=== PATIENT | female | born 1995 | race Caucasian/White ===

== ENCOUNTER 2016-10-18 06:46 | Emergency (ER) | payer BC, MEDICAID ==
[~2016-10-18 06:46] MED LIST: ACET50TA PO; IBUP-1114 PO; PREN1TAB11 PO
[2016-10-18] MEDS ORDERED: ONDANSETRON 4MG/2ML VIAL (J2405) As Ordered ONE (07:35)
[2016-10-18 07:52] LABS: BASO % 0.2 % (0.0-1.0); EOS # 0.1 K/mm3 (0.0-0.50); EOS % 0.8 % (0.0-3.0); LARGE UNSTAINED CELL # 0.1 K/mm3 (0.0-0.4); LARGE UNSTAINED CELL % 0.9 % (0.0-4.0); LYMPH # 0.4 K/mm3 (1.5-6.5); LYMPH % 4.6 % (24.0-44.0); MEAN CORPUSCULAR HEMOGLOBIN 29.2 pg (27.0-33.0); MEAN CORPUSCULAR HGB CONC 34.2 g/dl (32.0-36.5); MEAN CORPUSCULAR VOLUME 85.2 fl (80.0-96.0); MONO # 0.2 K/mm3 (0.0-0.8); MONO % 1.9 % (0.0-5.0); NEUTROPHILS # 7.1 K/mm3 (1.8-7.7); NEUTROPHILS % 91.6 % (36.0-66.0); PLATELET COUNT, AUTOMATED 236 k/mm3 (150-450); RED CELL DISTRIBUTION WIDTH 11.7 % (11.5-14.5); WHITE BLOOD COUNT 7.8 K/mm3 (4.0-10.0)
[2016-10-18 08:19] LABS: ALBUMIN/GLOBULIN RATIO 1.14 (1.00-1.93); ALKALINE PHOSPHATASE 102 U/L (45-117); ALT/SGPT 20 U/L (12-78); AMYLASE 68 U/L (25-115); ANION GAP 13 MEQ/L (8-16); AST/SGOT 11 U/L (15-37); BILIRUBIN,DIRECT 0.2 MG/DL (0.0-0.2); BILIRUBIN,TOTAL 0.7 MG/DL (0.2-1.0); BLOOD UREA NITROGEN 15 MG/DL (7-18); CALCIUM LEVEL 9.1 MG/DL (8.5-10.1); CARBON DIOXIDE LEVEL 24 MEQ/L (21-32); CHLORIDE LEVEL 106 MEQ/L (98-107); CREATININE FOR GFR 0.77 MG/DL (0.55-1.02); GLUCOSE, FASTING 128 MG/DL (70-105); POTASSIUM SERUM 3.8 MEQ/L (3.5-5.1); SODIUM LEVEL 143 MEQ/L (136-145); TOTAL PROTEIN 7.5 GM/DL (6.4-8.2)
[2016-10-18] MEDS ORDERED: ISOVUE-370 76% 100ML VIAL (Q9967) As Ordered ONE (08:33)
--- NOTE | 2016-10-18 08:58 | REP ---
Clinical: Mid abdominal pain. Technique: Axial contrast enhanced images from the lung bases to the pubic symphysis using 100 ml Isovue 370 intravenous contrast material with coronal and sagittal re-formations. Findings: Lung bases are clear. Visualized heart and pericardium are normal. Liver, spleen, pancreas, gallbladder, bilateral adrenal glands and kidneys are normal. The enteric system demonstrates fluid-filled small bowel along with moderate fecal stasis involving the transverse through rectosigmoid colon suggesting the possibility of constipation as well as mild enteritis. No bowel obstruction. Normal appendix identified in the right lower quadrant. Pelvis demonstrates normal bladder and age-appropriate uterus/adnexa. No pelvic fluid or ascites. No free air. No intraperitoneal or retroperitoneal adenopathy. Musculoskeletal structures are intact and normal. Impression: 1. Moderate fecal stasis and possible constipation as well as mild enteritis cannot be excluded. 2. Normal appendix identified in the right lower quadrant. 3. No free fluid. Signed by Gopal Welch MD 10/18/2016 08:49 A
[2016-10-18] MEDS ORDERED: MAGNESIUM CITRATE 300 ML BTL As Ordered ONE (09:20)
--- NOTE | 2016-10-18 09:33 | EDDOCDS ---
Nurse's Notes [facility] Name: Cheyenne Pete Age: 20 yrs Sex: Female : 1995 Arrival Date: 10/18/2016 Time: 06:46 Bed I3 / M3 Private MD: Diagnosis: Constipation;Nausea and vomiting Presentation: 10/18 07:09 Presenting complaint: Patient states: "I woke up at 1100 last night and I've been jc4 vomiting since." Complains of pain in mid-abdomen. Denies any diarrhea. Risk factors: the patient reports no vaginal bleeding. Suicide/Homicide risk assessment- the patient denies having any suicidal and/or homicidal ideations and does not present with any other emotional, behavioral or mental health complaints. 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 Transition of care: patient was not received from another setting of care. 07:09 Acuity: MARCOS Level 3 4 07:09 Method Of Arrival: Walkin/Carried/Asstd jc4 07:14 Adult Sepsis Screening: The patient does not have new or worsening altered mentation. jc4 Patient's respiratory rate is less than 22. Systolic blood pressure is greater than 100. Patient has a qSOFA score of 0- Negative Sepsis Screen. Triage Assessment: 07:11 General: Appears uncomfortable. Pain: Pain currently is 8 out of 10 on a pain scale. Pt jc4 Declines HIV testing. GI: Reports nausea, vomiting. 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 BCP 1 tab once daily (Last dose: 10/17/2016) - PMHx: none; - PSHx: [place] Teeth Extraction; - Social history: Smoking status: Patient states was never smoker of tobacco. No barriers to communication noted, The patient speaks fluent [place] Of [place]. - Family history: Father has/had recently diagnosed with C-diff. - : The pt / caregiver states he / she is not on anticoagulants. Home medication list is obtained from the patient. - Exposure Risk Screening:: None identified. Screenin:47 Screening information is obtained from the patient. Fall risk: No risks identified. dls Assistance ADL's: requires no assistance with activities of daily living. Abuse/DV Screen: The patient / caregiver reports he/she is: not in a situation that causes fear, pain or injury. Nutritional screening: No deficits noted. Advance Directives: Currently, there is no health care proxy. There is no active DNR order. There is no living will. There is no Power of Oncology Registrar. Advance directive information has not previously been placed in an [facility] medical record. home support is adequate. Assessment: 07:46 General: Appears in no apparent distress, well developed, well nourished, well groomed, dls Behavior is cooperative. Pain: Location: abdomen. Neurological: No deficits noted. EENT: No deficits noted. Cardiovascular: No deficits noted. Respiratory: No deficits noted. GI: Abdomen is non- distended Bowel sounds diminished in right upper quadrant, left upper quadrant, right lower quadrant and left lower quadrant Abd is tender to palpation in right upper quadrant and right lower quadrant Reports nausea, vomiting. : No deficits noted. Derm: No deficits noted. Musculoskeletal: No deficits noted. 08:52 General: Pt states nausea has improved after medication pt to CT and returned via w/c dls IV site remains patent and clear.. 09:30 General: Appears in no apparent distress, very casual presentation. ambulates with jmk brisk upright gait. Vital Signs: 07:11 BP 123 / 69; Pulse 115; Resp 20; Temp 99.5(O); Pulse Ox 97% on R/A; Weight 79.83 kg; jc4 Height 5 ft. 10 in. (177.80 cm); Pain 8/10; 09:22 BP 108 / 55; Pulse 109; Resp 18; Temp 98.0(O); Pulse Ox 100% on R/A; Pain 6/10; dem1 07:11 Body Mass Index 25.25 (79.83 kg, 177.80 cm) [facility] Vitals: 07:11 Log In Time: October 18, 2016 at 06:42. [facility] ED Course: 06:47 Patient visited by Avani Dooley. [facility] [place] 06:47 Patient moved to Waiting [facility] [place] 07:10 Triage Initiated [facility] 07:11 Quique Huizar PA is PHCP. btw 07:11 Venancio Ortega MD is Attending Physician. btw 07:11 Claudia Spencer, MARIA ELENA is Primary Nurse. btw 07:11 Patient moved to I2 / M2 btw 07:15 Patient moved to I3 / M3 dls 07:23 Patient visited by Quique Huizar PA. btw 07:41 Urinalysis Sent. dem1 07:41 Urine Culture Sent. dem1 07:42 Patient visited by Selene Vaughn. dem1 07:44 Amylase Sent. dls 07:44 Basic Metabolic Profile Sent. dls 07:44 CBC with Diff Sent. dls 07:44 Lipase Sent. dls 07:44 Liver Profile Sent. dls 07:47 The patient / caregiver is instructed regarding the plan of care and ED course. dls Accompanied by Friend, Patient has correct armband on for positive identification. Bed in low position. Call light in reach. 07:47 Inserted saline lock: 20 gauge in left forearm and blood collected. The patient dls tolerated the procedure well. 08:09 [facility] Payment Agreement was scanned into [employer] and attached to record. lg 08:54 Patient visited by Claudia Spencer RN. dls 09:01 CT ABD & PELVIS: IV Contrast Only Returned. EDMS 09:17 [facility] is Referral Physician. btw 09:22 Patient visited by Selene Vaughn. dem1 09:30 Discontinued lock intact, bleeding controlled, pressure dressing applied, No jmk redness/swelling at site. No procedures done that require assistance. Administered Medications: 07:45 Drug: Ondansetron 4 mg [ondansetron HCl 2 mg/mL intravenous solution (2 mL)] Route: dls IVP; Site: left wrist; 09:23 Drug: Magnesium Citrate 300 ml [magnesium citrate oral solution (300 mL)] Route: PO; [facility] Point of Care Testing: Urine : 07:41 hCG Reading: Negative; Control Reading: Positive; dem1 Ranges: Order Results: Lab Order: Amylase; SPEC'M 10/18/16 07:44 Test: AMYLASE; Value: 68; Range: 25-115; Units: U/L; Status: F Lab Order: Basic Metabolic Profile; SPEC'M 10/18/16 07:44 Test: GLUCOSE, FASTING; Value: 128; Range: 70-105; Abnormal: Above high normal; Units: MG/DL; Status: F Test: BLOOD UREA NITROGEN; Value: 15; Range: 7-18; Units: MG/DL; Status: F Test: CREATININE FOR GFR; Value: 0.77; Range: 0.55-1.02; Units: MG/DL; Status: F Test: SODIUM LEVEL; Value: 143; Range: 136-145; Units: MEQ/L; Status: F Test: POTASSIUM SERUM; Value: 3.8; Range: 3.5-5.1; Units: MEQ/L; Status: F Test: CHLORIDE LEVEL; Value: 106; Range: 98-107; Units: MEQ/L; Status: F Test: CARBON DIOXIDE LEVEL; Value: 24; Range: 21-32; Units: MEQ/L; Status: F Test: ANION GAP; Value: 13; Range: 8-16; Units: MEQ/L; Status: F Test: CALCIUM LEVEL; Value: 9.1; Range: 8.5-10.1; Units: MG/DL; Status: F Lab Order: CBC with Diff; SPEC'M 10/18/16 07:44 Test: WHITE BLOOD COUNT; Value: 7.8; Range: 4.0-10.0; Units: K/mm3; Status: F Test: RED BLOOD COUNT; Value: 5.02; Range: 4.00-5.40; Units: M/mm3; Status: F Test: HEMOGLOBIN; Value: 14.7; Range: 12.0-16.0; Units: g/dl; Status: F Test: HEMATOCRIT; Value: 42.8; Range: 36.0-47.0; Units: %; Status: F Test: MEAN CORPUSCULAR VOLUME; Value: 85.2; Range: 80.0-96.0; Units: fl; Status: F Test: MEAN CORPUSCULAR HEMOGLOBIN; Value: 29.2; Range: 27.0-33.0; Units: pg; Status: F Test: MEAN CORPUSCULAR HGB CONC; Value: 34.2; Range: 32.0-36.5; Units: g/dl; Status: F Test: RED CELL DISTRIBUTION WIDTH; Value: 11.7; Range: 11.5-14.5; Units: %; Status: F Test: PLATELET COUNT, AUTOMATED; Value: 236; Range: 150-450; Units: k/mm3; Status: F Test: NEUTROPHILS %; Value: 91.6; Range: 36.0-66.0; Abnormal: Above high normal; Units: %; Status: F Test: LYMPH %; Value: 4.6; Range: 24.0-44.0; Abnormal: Below low normal; Units: %; Status: F Test: MONO %; Value: 1.9; Range: 0.0-5.0; Units: %; Status: F Test: EOS %; Value: 0.8; Range: 0.0-3.0; Units: %; Status: F Test: BASO %; Value: 0.2; Range: 0.0-1.0; Units: %; Status: F Test: LARGE UNSTAINED CELL %; Value: 0.9; Range: 0.0-4.0; Units: %; Status: F Test: NEUTROPHILS #; Value: 7.1; Range: 1.8-7.7; Units: K/mm3; Status: F Test: LYMPH #; Value: 0.4; Range: 1.5-6.5; Abnormal: Below low normal; Units: K/mm3; Status: F Test: MONO #; Value: 0.2; Range: 0.0-0.8; Units: K/mm3; Status: F Test: EOS #; Value: 0.1; Range: 0.0-0.50; Units: K/mm3; Status: F Test: BASO #; Value: 0.0; Range: 0.0-0.2; Units: K/mm3; Status: F Test: LARGE UNSTAINED CELL #; Value: 0.1; Range: 0.0-0.4; Units: K/mm3; Status: F Lab Order: Lipase; SPEC'M 10/18/16 07:44 Test: LIPASE; Value: 118; Range: 73-393; Units: U/L; Status: F Lab Order: Liver Profile; SPEC'M 10/18/16 07:44 Test: AST/SGOT; Value: 11; Range: 15-37; Abnormal: Below low normal; Units: U/L; Status: F Test: ALT/SGPT; Value: 20; Range: 12-78; Units: U/L; Status: F Test: ALKALINE PHOSPHATASE; Value: 102; Range: 45-117; Units: U/L; Status: F Test: BILIRUBIN,TOTAL; Value: 0.7; Range: 0.2-1.0; Units: MG/DL; Status: F Test: BILIRUBIN,DIRECT; Value: 0.2; Range: 0.0-0.2; Units: MG/DL; Status: F Test: TOTAL PROTEIN; Value: 7.5; Range: 6.4-8.2; Units: GM/DL; Status: F Test: ALBUMIN; Value: 4.0; Range: 3.2-5.2; Units: GM/DL; Status: F Test: ALBUMIN/GLOBULIN RATIO; Value: 1.14; Range: 1.00-1.93; Status: F Lab Order: Urinalysis; SPEC'M 10/18/16 07:39 Test: APPEARANCE, URINE; Value: CLOUDY; Range: CLEAR; Abnormal: Above high normal; Status: F Test: COLOR, URINE; Value: YELLOW; Range: YELLOW; Status: F Test: PH,URINE; Value: 7.0; Range: 5.0-9.0; Units: UNITS; Status: F Test: SPECIFIC GRAVITY URINE AUTO; Value: 1.027; Range: 1.002-1.035; Status: F Test: PROTEIN, URINE AUTO; Value: 1+; Range: NEGATIVE; Abnormal: Above high normal; Units: mg/dL; Status: F Test: GLUCOSE, URINE (UA) AUTO; Value: 1+; Range: NEGATIVE; Abnormal: Above high normal; Units: mg/dL; Status: F Test: KETONE, URINE AUTO; Value: NEGATIVE; Range: NEGATIVE; Units: mg/dL; Status: F Test: UROBILINOGEN, URINE AUTO; Value: 0.2; Range: 0.0-2.0; Units: mg/dL; Status: F Test: BILIRUBIN, URINE AUTO; Value: NEGATIVE; Range: NEGATIVE; Status: F Test: NITRITE, URINE AUTO; Value: NEGATIVE; Range: NEGATIVE; Status: F Test: LEUKOCYTE ESTERASE, URINE AUTO; Value: 2+; Range: NEGATIVE; Abnormal: Above high normal; Status: F Test: BLOOD, URINE BLOOD; Value: NEGATIVE; Range: NEGATIVE; Status: F Test: WBC, URINE AUTO; Value: 12; Range: 0-3; Abnormal: Above high normal; Units: /HPF; Status: F Test: RBC, URINE AUTO; Value: 1; Range: 0-3; Units: /HPF; Status: F Test: BACTERIA, URINE AUTO; Value: 2+; Range: NEGATIVE; Abnormal: Above high normal; Status: F Test: SQUAMOUS EPITHELIAL CELL UR AU; Value: 33; Range: 0-6; Units: /HPF; Status: F Test: MUCUS, URINE; Value: SMALL; Range: NEGATIVE; Status: F Test: HYALINE CAST, URINE AUTO; Value: 0; Range: 0-1; Units: /LPF; Status: F Radiology Order: CT ABD & PELVIS: IV Contrast Only Test: CT ABD & PELVIS: IV Contrast Only REASON FOR EXAMINATION: Appendicitis; Clinical: Mid abdominal pain.; ; Technique: Axial contrast enhanced images from the lung bases to the pubic; symphysis using 100 ml Isovue 370 intravenous contrast material with coronal and; sagittal re-formations.; ; Findings:; Lung bases are clear. Visualized heart and pericardium are normal.; ; Liver, spleen, pancreas, gallbladder, bilateral adrenal glands and kidneys are; normal. The enteric system demonstrates fluid-filled small bowel along with; moderate fecal stasis involving the transverse through rectosigmoid colon; suggesting the possibility of constipation as well as mild enteritis. No bowel; obstruction. Normal appendix identified in the right lower quadrant. Pelvis; demonstrates normal bladder and age-appropriate uterus/adnexa. No pelvic fluid; or ascites. No free air. No intraperitoneal or retroperitoneal adenopathy.; Musculoskeletal structures are intact and normal.; ; Impression:; 1. Moderate fecal stasis and possible constipation as well as mild enteritis; cannot be excluded.; 2. Normal appendix identified in the right lower quadrant.; 3. No free fluid.; ; ; Signed by; Gopal Welch MD 10/18/2016 08:49 A; Outcome: 09:17 Discharge ordered by Provider. btw 09:30 Discharge Assessment: Patient awake, alert and oriented x 3. No cognitive and/or k functional deficits noted. Patient verbalized understanding of disposition instructions. patient administered narcotics - no. The following High Risk Discharge criteria are identified: None. Discharged to home ambulatory. Condition: good. Discharge instructions given to patient, Instructed on discharge instructions, follow up and referral plans. medication usage, Demonstrated understanding of instructions, medications, Pt was receptive of discharge instructions/ teaching. No special radiology studies were completed. Property :Personal belongings accompany Pt. 09:31 Patient left the ED. [facility] Signatures: Dispatcher [employer] Mingo Delong RN RN Claudia Eden RN RN Lalo Quinteros, Brandon Reg Quique Arciniega PA PA btw Castle, Jennifer, RN RN jc4 Selene Vaughn Gabriela gjb WALTD
--- NOTE | 2016-10-18 09:33 | EDDOCDS ---
Physician Documentation [facility] Name: Cheyenne Pete Age: 20 yrs Sex: Female : 1995 Arrival Date: 10/18/2016 Time: 06:46 Bed I3 / M3 Private MD: Disposition: 10/18/16 09:17 Discharged to Home/Self Care. Impression: Constipation, Nausea and vomiting. - Condition is Stable. - Discharge Instructions: High-Fiber Diet, Nausea and Vomiting, Constipation, Adult, [id number]. - Medication Reconciliation, Local Pharmacy Hours form. - [facility] up: [facility]; When: Call to arrange an appointment; Reason: Further diagnostic work-up, Recheck today's complaints, Continuance of care. - Problem is new. - Symptoms have improved. Historical: - Allergies: Augmentin (chest pain); - Home Meds: 1. BCP 1 tab once daily (Last dose: 10/17/2016) - PMHx: none; - PSHx: [place] Teeth Extraction; - Social history: Smoking status: Patient states was never smoker of tobacco. No barriers to communication noted, The patient speaks fluent Taiwanese. - Family history: Father has/had recently diagnosed with C-diff. - : The pt / caregiver states he / she is not on anticoagulants. Home medication list is obtained from the patient. - Exposure Risk Screening:: None identified. 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 10 in. (177.80 cm); Pain 8/10; 09:22 BP 108 / 55; Pulse 109; Resp 18; Temp 98.0(O); Pulse Ox 100% on R/A; Pain 6/10; dem1 07:11 Body Mass Index 25.25 (79.83 kg, 177.80 cm) 4 MDM: 07:30 Ondansetron 4 mg IVP once ordered. btw 07:30 IV Saline Lock ordered. btw 07:30 Amylase Ordered. EDMS 07:30 Basic Metabolic Profile Ordered. EDMS 07:30 CBC with Diff Ordered. EDMS 07:31 Lipase Ordered. EDMS 07:31 Liver Profile Ordered. EDMS 07:31 Urinalysis Ordered. EDMS 07:31 Urine Culture Ordered. EDMS 07:31 CT ABD & PELVIS: IV Contrast Only Ordered. EDMS 07:31 NOTHING BY MOUTH+DIET ordered. EDMS 07:37 UCG by Nursing ordered. btw 07:46 Financial registration complete. lg 08:09 [facility] Payment Agreement was scanned into [employer] and attached to record. lg 08:33 Basic Metabolic Profile Reviewed. btw 08:33 CBC with Diff Reviewed. btw 08:33 Liver Profile Reviewed. btw 08:33 Urinalysis Reviewed. btw 08:33 Amylase Reviewed. btw 08:33 Lipase Reviewed. btw 09:16 Magnesium Citrate Liquid 300 ml PO once; Dispense home with pt. ordered. btw Point of Care Testing: Urine : 07:41 hCG Reading: Negative; Control Reading: Positive; dem1 Ranges: Administered Medications: 07:45 Drug: Ondansetron 4 mg [ondansetron HCl 2 mg/mL intravenous solution (2 mL)] Route: dls IVP; Site: left wrist; 09:23 Drug: Magnesium Citrate 300 ml [magnesium citrate oral solution (300 mL)] Route: PO; derick Signatures: Dispatcher [employer] EDMS Mingo Urbina,RN RN Lalo Graves, Brandon Reg lg Quiuqe Huizar PA PA btw Grace Tapia RN RN Claudia Arnold RN The chart was reviewed and I authenticate all verbal orders and agree with the evaluation and treatment provided.Attachments: 08:09 [facility] Payment Agreement lg MTDD
--- NOTE | 2016-10-20 10:32 | EDDOCDS ---
Physician Documentation [facility] Name: Cheyenne Pete Age: 20 yrs Sex: Female : 1995 Arrival Date: 10/18/2016 Time: 06:46 Bed I3 / M3 Private MD: Disposition: 10/18/16 09:17 Discharged to Home/Self Care. Impression: Constipation, Nausea and vomiting. - Condition is Stable. - Discharge Instructions: High-Fiber Diet, Nausea and Vomiting, Constipation, Adult, Ieln-if-Suam. - Medication Reconciliation, Local Pharmacy Hours form. - Follow up: [facility]; When: Call to arrange an appointment; Reason: Further diagnostic work-up, Recheck today's complaints, Continuance of care. - Problem is new. - Symptoms have improved. Historical: - Allergies: Augmentin (chest pain); - Home Meds: 1. BCP 1 tab once daily (Last dose: 10/17/2016) - PMHx: none; - PSHx: [place] Teeth Extraction; - Social history: Smoking status: Patient states was never smoker of tobacco. No barriers to communication noted, The patient speaks fluent [place]inamese. - Family history: Father has/had recently diagnosed with C-diff. - : The pt / caregiver states he / she is not on anticoagulants. Home medication list is obtained from the patient. - Exposure Risk Screening:: None identified. 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 10 in. (177.80 cm); Pain 8/10; 09:22 BP 108 / 55; Pulse 109; Resp 18; Temp 98.0(O); Pulse Ox 100% on R/A; Pain 6/10; dem1 07:11 Body Mass Index 25.25 (79.83 kg, 177.80 cm) 4 MDM: 07:30 Ondansetron 4 mg IVP once ordered. btw 07:30 IV Saline Lock ordered. btw 07:30 Amylase Ordered. EDMS 07:30 Basic Metabolic Profile Ordered. EDMS 07:30 CBC with Diff Ordered. EDMS 07:31 Lipase Ordered. EDMS 07:31 Liver Profile Ordered. EDMS 07:31 Urinalysis Ordered. EDMS 07:31 Urine Culture Ordered. EDMS 07:31 CT ABD & PELVIS: IV Contrast Only Ordered. EDMS 07:31 NOTHING BY MOUTH+DIET ordered. EDMS 07:37 UCG by Nursing ordered. btw 07:46 Financial registration complete. lg 08:09 [facility] Payment Agreement was scanned into [employer] and attached to record. lg 08:33 Basic Metabolic Profile Reviewed. btw 08:33 CBC with Diff Reviewed. btw 08:33 Liver Profile Reviewed. btw 08:33 Urinalysis Reviewed. btw 08:33 Amylase Reviewed. btw 08:33 Lipase Reviewed. btw 09:16 Magnesium Citrate Liquid 300 ml PO once; Dispense home with pt. ordered. btw 13:25 T-Sheet-- Draft Copy was scanned into [employer] and attached to record. gb Point of Care Testing: Urine : 07:41 hCG Reading: Negative; Control Reading: Positive; dem1 Ranges: Administered Medications: 07:45 Drug: Ondansetron 4 mg [ondansetron HCl 2 mg/mL intravenous solution (2 mL)] Route: dls IVP; Site: left wrist; 09:23 Drug: Magnesium Citrate 300 ml [magnesium citrate oral solution (300 mL)] Route: PO; derick Signatures: Dispatcher [employer] Mingo Delong,RN RN Xi Steiner, Reg Reg gb Lalo Perales, Reg Reg lg Quique Huizar PA PA btw Grace Tapia RN RN Claudia Arnold RN The chart was reviewed and I authenticate all verbal orders and agree with the evaluation and treatment provided.Attachments: 08:09 [facility] Payment Agreement lg 13:25 T-Sheet-- Draft Copy gb Chart Complete MTDD
--- NOTE | 2016-10-20 10:32 | EDDOCDS ---
Physician Documentation [facility] Name: Cheyenne Pete Age: 20 yrs Sex: Female : 1995 Arrival Date: 10/18/2016 Time: 06:46 Bed I3 / M3 Private MD: Disposition: 10/18/16 09:17 Discharged to Home/Self Care. Impression: Constipation, Nausea and vomiting. - Condition is Stable. - Discharge Instructions: High-Fiber Diet, Nausea and Vomiting, Constipation, Adult, [id number]. - Medication Reconciliation, Local Pharmacy Hours form. - Follow up: [facility]; When: Call to arrange an appointment; Reason: Further diagnostic work-up, Recheck today's complaints, Continuance of care. - Problem is new. - Symptoms have improved. Historical: - Allergies: Augmentin (chest pain); - Home Meds: 1. BCP 1 tab once daily (Last dose: 10/17/2016) - PMHx: none; - PSHx: [place] Teeth Extraction; - Social history: Smoking status: Patient states was never smoker of tobacco. No barriers to communication noted, The patient speaks fluent [place] Konger. - Family history: Father has/had recently diagnosed with C-diff. - : The pt / caregiver states he / she is not on anticoagulants. Home medication list is obtained from the patient. - Exposure Risk Screening:: None identified. 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 10 in. (177.80 cm); Pain 8/10; 09:22 BP 108 / 55; Pulse 109; Resp 18; Temp 98.0(O); Pulse Ox 100% on R/A; Pain 6/10; dem1 07:11 Body Mass Index 25.25 (79.83 kg, 177.80 cm) 4 MDM: 07:30 Ondansetron 4 mg IVP once ordered. btw 07:30 IV Saline Lock ordered. btw 07:30 Amylase Ordered. EDMS 07:30 Basic Metabolic Profile Ordered. EDMS 07:30 CBC with Diff Ordered. EDMS 07:31 Lipase Ordered. EDMS 07:31 Liver Profile Ordered. EDMS 07:31 Urinalysis Ordered. EDMS 07:31 Urine Culture Ordered. EDMS 07:31 CT ABD & PELVIS: IV Contrast Only Ordered. EDMS 07:31 NOTHING BY MOUTH+DIET ordered. EDMS 07:37 UCG by Nursing ordered. btw 07:46 Financial registration complete. lg 08:09 [facility] Payment Agreement was scanned into [employer] and attached to record. lg 08:33 Basic Metabolic Profile Reviewed. btw 08:33 CBC with Diff Reviewed. btw 08:33 Liver Profile Reviewed. btw 08:33 Urinalysis Reviewed. btw 08:33 Amylase Reviewed. btw 08:33 Lipase Reviewed. btw 09:16 Magnesium Citrate Liquid 300 ml PO once; Dispense home with pt. ordered. btw 13:25 T-Sheet-- Draft Copy was scanned into [employer] and attached to record. gb Point of Care Testing: Urine : 07:41 hCG Reading: Negative; Control Reading: Positive; dem1 Ranges: Administered Medications: 07:45 Drug: Ondansetron 4 mg [ondansetron HCl 2 mg/mL intravenous solution (2 mL)] Route: dls IVP; Site: left wrist; 09:23 Drug: Magnesium Citrate 300 ml [magnesium citrate oral solution (300 mL)] Route: PO; derick Signatures: Dispatcher [employer] Mingo Delong,RN RN Xi Steiner, Reg Reg gb aLlo Perales, Reg Reg lg Quique Huizar PA PA btw Grace Tapia RN RN Claudia Arnold RN The chart was reviewed and I authenticate all verbal orders and agree with the evaluation and treatment provided.Attachments: 08:09 [facility] Payment Agreement lg 13:25 T-Sheet-- Draft Copy gb Chart Complete MTDD
--- NOTE | 2016-10-20 10:32 | EDDOCDS ---
Nurse's Notes [facility] Name: Cheyenne Pete Age: 20 yrs Sex: Female : 1995 Arrival Date: 10/18/2016 Time: 06:46 Bed I3 / M3 Private MD: Diagnosis: Constipation;Nausea and vomiting Presentation: 10/18 07:09 Presenting complaint: Patient states: "I woke up at 1100 last night and I've been jc4 vomiting since." Complains of pain in mid-abdomen. Denies any diarrhea. Risk factors: the patient reports no vaginal bleeding. Suicide/Homicide risk assessment- the patient denies having any suicidal and/or homicidal ideations and does not present with any other emotional, behavioral or mental health complaints. Status: Patient is not a insurance customer service specialist or dependent. Transition of care: patient was not received from another setting of care. 07:09 Acuity: MARCOS Level 3 4 07:09 Method Of Arrival: Walkin/Carried/Asstd jc4 07:14 Adult Sepsis Screening: The patient does not have new or worsening altered mentation. jc4 Patient's respiratory rate is less than 22. Systolic blood pressure is greater than 100. Patient has a qSOFA score of 0- Negative Sepsis Screen. Triage Assessment: 07:11 General: Appears uncomfortable. Pain: Pain currently is 8 out of 10 on a pain scale. Pt jc4 Declines HIV testing. GI: Reports nausea, vomiting. NURSING HOME ASSISTANT: 07:11 LMP 10/10/2016 jc4 Historical: - Allergies: Augmentin (chest pain); - Home Meds: 1. BCP 1 tab once daily (Last dose: 10/17/2016) - PMHx: none; - PSHx: Fleischmanns Teeth Extraction; - Social history: Smoking status: Patient states was never smoker of tobacco. No barriers to communication noted, The patient speaks fluent Libyan. - Family history: Father has/had recently diagnosed with C-diff. - : The pt / caregiver states he / she is not on anticoagulants. Home medication list is obtained from the patient. - Exposure Risk Screening:: None identified. Screenin:47 Screening information is obtained from the patient. Fall risk: No risks identified. dls Assistance ADL's: requires no assistance with activities of daily living. Abuse/DV Screen: The patient / caregiver reports he/she is: not in a situation that causes fear, pain or injury. Nutritional screening: No deficits noted. Advance Directives: Currently, there is no health care proxy. There is no active DNR order. There is no living will. There is no Power of Sql Data Analyst. Advance directive information has not previously been placed in an [facility] medical record. home support is adequate. Assessment: 07:46 General: Appears in no apparent distress, well developed, well nourished, well groomed, dls Behavior is cooperative. Pain: Location: abdomen. Neurological: No deficits noted. EENT: No deficits noted. Cardiovascular: No deficits noted. Respiratory: No deficits noted. GI: Abdomen is non- distended Bowel sounds diminished in right upper quadrant, left upper quadrant, right lower quadrant and left lower quadrant Abd is tender to palpation in right upper quadrant and right lower quadrant Reports nausea, vomiting. : No deficits noted. Derm: No deficits noted. Musculoskeletal: No deficits noted. 08:52 General: Pt states nausea has improved after medication pt to CT and returned via w/c dls IV site remains patent and clear.. 09:30 General: Appears in no apparent distress, very casual presentation. ambulates with jmk brisk upright gait. Vital Signs: 07:11 BP 123 / 69; Pulse 115; Resp 20; Temp 99.5(O); Pulse Ox 97% on R/A; Weight 79.83 kg; jc4 Height 5 ft. 10 in. (177.80 cm); Pain 8/10; 09:22 BP 108 / 55; Pulse 109; Resp 18; Temp 98.0(O); Pulse Ox 100% on R/A; Pain 6/10; dem1 07:11 Body Mass Index 25.25 (79.83 kg, 177.80 cm) [facility] Vitals: 07:11 Log In Time: October 18, 2016 at 06:42. [facility] ED Course: 06:47 Patient visited by Avani Dooley. banner 06:47 Patient moved to Waiting banner 07:10 Triage Initiated [facility] 07:11 Quique Huizar PA is PHCP. btw 07:11 Venancio Ortega MD is Attending Physician. btw 07:11 Claudia Spencer, MARIA ELENA is Primary Nurse. btw 07:11 Patient moved to I2 / M2 btw 07:15 Patient moved to I3 / M3 dls 07:23 Patient visited by Quique Huizar PA. btw 07:41 Urinalysis Sent. dem1 07:41 Urine Culture Sent. dem1 07:42 Patient visited by Selene Vaughn. dem1 07:44 Amylase Sent. dls 07:44 Basic Metabolic Profile Sent. dls 07:44 CBC with Diff Sent. dls 07:44 Lipase Sent. dls 07:44 Liver Profile Sent. dls 07:47 The patient / caregiver is instructed regarding the plan of care and ED course. dls Accompanied by Friend, Patient has correct armband on for positive identification. Bed in low position. Call light in reach. 07:47 Inserted saline lock: 20 gauge in left forearm and blood collected. The patient dls tolerated the procedure well. 08:09 [facility] [place] Payment Agreement was scanned into Jiglu and attached to record. lg 08:54 Patient visited by Claudia Spencer RN. dls 09:01 CT ABD & PELVIS: IV Contrast Only Returned. EDMS 09:17 [facility] is Referral Physician. btw 09:22 Patient visited by Selene Vaughn. dem1 09:30 Discontinued lock intact, bleeding controlled, pressure dressing applied, No jmk redness/swelling at site. No procedures done that require assistance. 13:25 T-Sheet-- Draft Copy was scanned into Jiglu and attached to record. gb Administered Medications: 07:45 Drug: Ondansetron 4 mg [ondansetron HCl 2 mg/mL intravenous solution (2 mL)] Route: dls IVP; Site: left wrist; 09:23 Drug: Magnesium Citrate 300 ml [magnesium citrate oral solution (300 mL)] Route: PO; [facility] Point of Care Testing: Urine : 07:41 hCG Reading: Negative; Control Reading: Positive; dem1 Ranges: Order Results: Lab Order: Amylase; SPEC'M 10/18/16 07:44 Test: AMYLASE; Value: 68; Range: 25-115; Units: U/L; Status: F Lab Order: Basic Metabolic Profile; SPEC'M 10/18/16 07:44 Test: GLUCOSE, FASTING; Value: 128; Range: 70-105; Abnormal: Above high normal; Units: MG/DL; Status: F Test: BLOOD UREA NITROGEN; Value: 15; Range: 7-18; Units: MG/DL; Status: F Test: CREATININE FOR GFR; Value: 0.77; Range: 0.55-1.02; Units: MG/DL; Status: F Test: SODIUM LEVEL; Value: 143; Range: 136-145; Units: MEQ/L; Status: F Test: POTASSIUM SERUM; Value: 3.8; Range: 3.5-5.1; Units: MEQ/L; Status: F Test: CHLORIDE LEVEL; Value: 106; Range: 98-107; Units: MEQ/L; Status: F Test: CARBON DIOXIDE LEVEL; Value: 24; Range: 21-32; Units: MEQ/L; Status: F Test: ANION GAP; Value: 13; Range: 8-16; Units: MEQ/L; Status: F Test: CALCIUM LEVEL; Value: 9.1; Range: 8.5-10.1; Units: MG/DL; Status: F Lab Order: CBC with Diff; SPEC'M 10/18/16 07:44 Test: WHITE BLOOD COUNT; Value: 7.8; Range: 4.0-10.0; Units: K/mm3; Status: F Test: RED BLOOD COUNT; Value: 5.02; Range: 4.00-5.40; Units: M/mm3; Status: F Test: HEMOGLOBIN; Value: 14.7; Range: 12.0-16.0; Units: g/dl; Status: F Test: HEMATOCRIT; Value: 42.8; Range: 36.0-47.0; Units: %; Status: F Test: MEAN CORPUSCULAR VOLUME; Value: 85.2; Range: 80.0-96.0; Units: fl; Status: F Test: MEAN CORPUSCULAR HEMOGLOBIN; Value: 29.2; Range: 27.0-33.0; Units: pg; Status: F Test: MEAN CORPUSCULAR HGB CONC; Value: 34.2; Range: 32.0-36.5; Units: g/dl; Status: F Test: RED CELL DISTRIBUTION WIDTH; Value: 11.7; Range: 11.5-14.5; Units: %; Status: F Test: PLATELET COUNT, AUTOMATED; Value: 236; Range: 150-450; Units: k/mm3; Status: F Test: NEUTROPHILS %; Value: 91.6; Range: 36.0-66.0; Abnormal: Above high normal; Units: %; Status: F Test: LYMPH %; Value: 4.6; Range: 24.0-44.0; Abnormal: Below low normal; Units: %; Status: F Test: MONO %; Value: 1.9; Range: 0.0-5.0; Units: %; Status: F Test: EOS %; Value: 0.8; Range: 0.0-3.0; Units: %; Status: F Test: BASO %; Value: 0.2; Range: 0.0-1.0; Units: %; Status: F Test: LARGE UNSTAINED CELL %; Value: 0.9; Range: 0.0-4.0; Units: %; Status: F Test: NEUTROPHILS #; Value: 7.1; Range: 1.8-7.7; Units: K/mm3; Status: F Test: LYMPH #; Value: 0.4; Range: 1.5-6.5; Abnormal: Below low normal; Units: K/mm3; Status: F Test: MONO #; Value: 0.2; Range: 0.0-0.8; Units: K/mm3; Status: F Test: EOS #; Value: 0.1; Range: 0.0-0.50; Units: K/mm3; Status: F Test: BASO #; Value: 0.0; Range: 0.0-0.2; Units: K/mm3; Status: F Test: LARGE UNSTAINED CELL #; Value: 0.1; Range: 0.0-0.4; Units: K/mm3; Status: F Lab Order: Lipase; SPEC'M 10/18/16 07:44 Test: LIPASE; Value: 118; Range: 73-393; Units: U/L; Status: F Lab Order: Liver Profile; SPEC'M 10/18/16 07:44 Test: AST/SGOT; Value: 11; Range: 15-37; Abnormal: Below low normal; Units: U/L; Status: F Test: ALT/SGPT; Value: 20; Range: 12-78; Units: U/L; Status: F Test: ALKALINE PHOSPHATASE; Value: 102; Range: 45-117; Units: U/L; Status: F Test: BILIRUBIN,TOTAL; Value: 0.7; Range: 0.2-1.0; Units: MG/DL; Status: F Test: BILIRUBIN,DIRECT; Value: 0.2; Range: 0.0-0.2; Units: MG/DL; Status: F Test: TOTAL PROTEIN; Value: 7.5; Range: 6.4-8.2; Units: GM/DL; Status: F Test: ALBUMIN; Value: 4.0; Range: 3.2-5.2; Units: GM/DL; Status: F Test: ALBUMIN/GLOBULIN RATIO; Value: 1.14; Range: 1.00-1.93; Status: F Lab Order: Urinalysis; SPEC'M 10/18/16 07:39 Test: APPEARANCE, URINE; Value: CLOUDY; Range: CLEAR; Abnormal: Above high normal; Status: F Test: COLOR, URINE; Value: YELLOW; Range: YELLOW; Status: F Test: PH,URINE; Value: 7.0; Range: 5.0-9.0; Units: UNITS; Status: F Test: SPECIFIC GRAVITY URINE AUTO; Value: 1.027; Range: 1.002-1.035; Status: F Test: PROTEIN, URINE AUTO; Value: 1+; Range: NEGATIVE; Abnormal: Above high normal; Units: mg/dL; Status: F Test: GLUCOSE, URINE (UA) AUTO; Value: 1+; Range: NEGATIVE; Abnormal: Above high normal; Units: mg/dL; Status: F Test: KETONE, URINE AUTO; Value: NEGATIVE; Range: NEGATIVE; Units: mg/dL; Status: F Test: UROBILINOGEN, URINE AUTO; Value: 0.2; Range: 0.0-2.0; Units: mg/dL; Status: F Test: BILIRUBIN, URINE AUTO; Value: NEGATIVE; Range: NEGATIVE; Status: F Test: NITRITE, URINE AUTO; Value: NEGATIVE; Range: NEGATIVE; Status: F Test: LEUKOCYTE ESTERASE, URINE AUTO; Value: 2+; Range: NEGATIVE; Abnormal: Above high normal; Status: F Test: BLOOD, URINE BLOOD; Value: NEGATIVE; Range: NEGATIVE; Status: F Test: WBC, URINE AUTO; Value: 12; Range: 0-3; Abnormal: Above high normal; Units: /HPF; Status: F Test: RBC, URINE AUTO; Value: 1; Range: 0-3; Units: /HPF; Status: F Test: BACTERIA, URINE AUTO; Value: 2+; Range: NEGATIVE; Abnormal: Above high normal; Status: F Test: SQUAMOUS EPITHELIAL CELL UR AU; Value: 33; Range: 0-6; Units: /HPF; Status: F Test: MUCUS, URINE; Value: SMALL; Range: NEGATIVE; Status: F Test: HYALINE CAST, URINE AUTO; Value: 0; Range: 0-1; Units: /LPF; Status: F Lab Order: Urine Culture; SPEC'M 10/18/16 07:39 Test: URINE CULTURE; Value: URINE CULTURE RESULT NO GROWTH CLINICAL SIGNIFICANCE 1 ORGANISM; Status: F Radiology Order: CT ABD & PELVIS: IV Contrast Only Test: CT ABD & PELVIS: IV Contrast Only REASON FOR EXAMINATION: Appendicitis; Clinical: Mid abdominal pain.; ; Technique: Axial contrast enhanced images from the lung bases to the pubic; symphysis using 100 ml Isovue 370 intravenous contrast material with coronal and; sagittal re-formations.; ; Findings:; Lung bases are clear. Visualized heart and pericardium are normal.; ; Liver, spleen, pancreas, gallbladder, bilateral adrenal glands and kidneys are; normal. The enteric system demonstrates fluid-filled small bowel along with; moderate fecal stasis involving the transverse through rectosigmoid colon; suggesting the possibility of constipation as well as mild enteritis. No bowel; obstruction. Normal appendix identified in the right lower quadrant. Pelvis; demonstrates normal bladder and age-appropriate uterus/adnexa. No pelvic fluid; or ascites. No free air. No intraperitoneal or retroperitoneal adenopathy.; Musculoskeletal structures are intact and normal.; ; Impression:; 1. Moderate fecal stasis and possible constipation as well as mild enteritis; cannot be excluded.; 2. Normal appendix identified in the right lower quadrant.; 3. No free fluid.; ; ; Signed by; Gopal Welch MD 10/18/2016 08:49 A; Outcome: 09:17 Discharge ordered by Provider. btw 09:30 Discharge Assessment: Patient awake, alert and oriented x 3. No cognitive and/or jmk functional deficits noted. Patient verbalized understanding of disposition instructions. patient administered narcotics - no. The following High Risk Discharge criteria are identified: None. Discharged to home ambulatory. Condition: good. Discharge instructions given to patient, Instructed on discharge instructions, follow up and referral plans. medication usage, Demonstrated understanding of instructions, medications, Pt was receptive of discharge instructions/ teaching. No special radiology studies were completed. Property :Personal belongings accompany Pt. 09:31 Patient left the ED. derick Signatures: Dispatcher [employer] EDMS Mingo Urbina,RN RN Claudia Eden RN RN dls Xi Yang, Reg Reg gb Lalo Perales, Reg Reg lg Quique Huizar PA PA btw Castle, Jennifer, RN RN jcSelene Woods Gabriela gjb Chart Complete MTDD
== END 2016-10-18 09:31 | disposition home or self-care (01) ==
LOC: M ED 06:46
DX: K59.00 Constipation, unspecified (principal); R11.2 Nausea with vomiting, unspecified; Z79.3 Long term (current) use of hormonal contraceptives; Z88.1 Allergy status to other antibiotic agents
CPT/HCPCS: 36415; 74177; 80048; 80076; 81001; 81025; 82150; 83690; 85025; 87086; 96374; 99284; J2405; Q9967

== ENCOUNTER → 2017-03-01 | Outpatient (CLI) | payer BC | LOC: M LAB 13:08 | PROVIDERS: ATTEND Nurse Practitioner Family | DX: Z32.01 Encounter for pregnancy test, result positive (principal) ==

== ENCOUNTER → 2017-03-03 | Outpatient (CLI) | payer BC | LOC: M LAB 09:52 | PROVIDERS: ATTEND Nurse Practitioner Family | DX: Z32.01 Encounter for pregnancy test, result positive (principal) ==

== ENCOUNTER 2017-03-04 11:40 | Emergency (ER) | payer BC, MEDICAID ==
[~2017-03-04] VITALS: Ht 177.8 cm; Wt 89.8 kg
[2017-03-04 13:11] LABS: BASO % 0.5 % (0.0-1.0); EOS # 0.3 K/mm3 (0.0-0.50); EOS % 3.8 % (0.0-3.0); LARGE UNSTAINED CELL # 0.2 K/mm3 (0.0-0.4); LARGE UNSTAINED CELL % 2.3 % (0.0-4.0); LYMPH # 1.9 K/mm3 (1.5-6.5); LYMPH % 22.7 % (24.0-44.0); MEAN CORPUSCULAR HEMOGLOBIN 29.9 pg (27.0-33.0); MEAN CORPUSCULAR HGB CONC 34.1 g/dl (32.0-36.5); MEAN CORPUSCULAR VOLUME 87.8 fl (80.0-96.0); MONO # 0.4 K/mm3 (0.0-0.8); MONO % 4.2 % (0.0-5.0); NEUTROPHILS # 5.7 K/mm3 (1.8-7.7); NEUTROPHILS % 66.5 % (36.0-66.0); PLATELET COUNT, AUTOMATED 304 k/mm3 (150-450); RED CELL DISTRIBUTION WIDTH 12.1 % (11.5-14.5); WHITE BLOOD COUNT 8.5 K/mm3 (4.0-10.0)
--- NOTE | 2017-03-04 14:42 | REP ---
Clinical: Pelvic pain with positive test. Technique: Transabdominal and transvaginal first trimester obstetrical ultrasound with color Doppler evaluation. Findings: Anteverted uterus with decidual reaction and a gestational sac identified. A yolk sac is appreciated without pole. Mean sac diameter of 9 mm corresponds to 5 weeks 0 days gestational age. Maternal ovaries are normal with left corpus luteal cyst noted. No significant pelvic free fluid or adnexal mass lesion. Impression: Gestational sac with yolk sac but no definable pole measuring at 5 weeks gestational age. Differential diagnosis includes early live intrauterine , blighted ovum/spontaneous , and less likely ectopic . Correlation with serial HCG levels recommended. Signed by Gopal Welch MD 03/04/2017 02:33 P
[2017-03-04 14:54] VITALS: BP 131/78
== END 2017-03-04 15:02 | disposition home or self-care (01) ==
LOC: M ED 12:56
DX: O26.891 Other specified pregnancy related conditions, first trimester (principal); R10.2 Pelvic and perineal pain; Z3A.01 Less than 8 weeks gestation of pregnancy; Z88.0 Allergy status to penicillin; Z88.8 Allergy status to other drugs, medicaments and biological substances

== ENCOUNTER → 2018-04-18 | Outpatient (REF) | payer BC, MEDICAID ==
[2018-04-18 22:17] LABS: APPEARANCE, URINE MANUAL TURBID (CLEAR); COLOR, URINE MANUAL ORANGE (YELLOW)
[2018-04-18 22:19] LABS: PH,URINE MAN 5.5 UNITS (5.0 - 7.0); SPECIFIC GRAVITY,URINE MANUAL 1.023 (1.002-1.035)
[2018-04-18 22:20] LABS: BILIRUBIN, URINE MANUAL OBSCURED (NEGATIVE); BLOOD URINE MANUAL POSITIVE (NEGATIVE); GLUCOSE, URINE (UA) MANUAL NEGATIVE (NEGATIVE); KETONE, URINE MANUAL OBSCURED mg/dL (NEGATIVE); LEUKOCYTE ESTERASE, URINE MAN POSITIVE (NEGATIVE); MICROSCOPIC INDICATED? MAN YES (NO); NITRITE, URINE MANUAL OBSCURED (NEGATIVE); PROTEIN, URINE MANUAL OBSCURED mg/dL (NEGATIVE); UROBILINOGEN, URINE MANUAL OBSCURED mg/dl (NORMAL)
[2018-04-18 22:30] LABS: MICROSCOPIC EXAM PERFORMED
[2018-04-18 22:31] LABS: RBC, URINE TNTC /hpf (0-3); WBC, URINE 40-50 /hpf (0-3)
[2018-04-18 22:32] LABS: AMORPHOUS SEDIMENT, URINE MOD AMOUNT (NEGATIVE); BACTERIA, URINE MOD AMOUNT; HYALINE CAST, URINE NONE SEEN /lpf (0-1); SQUAMOUS EPITHELIAL CELL URINE MOD AMOUNT /hpf (SMALL AMT)
== END ==
LOC: M LAB REF 09:03
DX: N39.0 Urinary tract infection, site not specified (principal)
CPT/HCPCS: 81000

== ENCOUNTER 2019-06-24 11:04 | Emergency (ER) | payer OTHER, BC, MEDICAID ==
[~2019-06-24] VITALS: Ht 177.8 cm; Wt 73.6 kg
[~2019-06-24 11:04] MED LIST changes: -ACET50TA PO; +MAPA500T2 PO; +NORE0.353
[2019-06-24] MEDS ORDERED: CYCLOBENZAPRINE 5MG TABLET PO ONE (12:00)
[2019-06-24] MEDS ORDERED: IBUPROFEN 800 MG TAB PO ONE (12:00)
[2019-06-24] MEDS ORDERED: IBUP80TA PO (13:05)
[2019-06-24] MEDS ORDERED: BACL10TA2 PO (13:05)
--- NOTE | 2019-06-24 13:16 | REP ---
Pain in the neck. Vertebral body height and alignment is within normal limits. The facet joints are well aligned bilaterally. The disc spaces are symmetric and well maintained. There is no acute fracture. There is no abnormal paraspinal soft tissue swelling. IMPRESSION: CT findings are within normal limits. Electronically Signed by Cameron Silverman DO 06/24/2019 01:17 P
[2019-06-24 13:19] VITALS: BP 120/66
--- NOTE | 2019-06-24 13:40 | REP ---
SHOULDER: REASON: Pain after trauma. COMPARISON: No priors. FINDINGS: Three views of the shoulder were performed. The acromioclavicular and glenohumeral relationships are within normal limits. There is no acute fracture or destructive osseous lesion. Electronically Signed by Cameron Silverman DO 06/24/2019 02:22 P
== END 2019-06-24 13:18 | disposition home or self-care (01) ==
LOC: M ED 11:04
DX: S16.1XXA Strain of muscle, fascia and tendon at neck level, initial encounter (principal); M25.511 Pain in right shoulder; V89.2XXA Person injured in unspecified motor-vehicle accident, traffic, initial encounter; X58.XXXA Exposure to other specified factors, initial encounter; Z88.1 Allergy status to other antibiotic agents; Z88.8 Allergy status to other drugs, medicaments and biological substances; Z79.3 Long term (current) use of hormonal contraceptives

== ENCOUNTER → 2020-04-08 | Outpatient (REF) | payer MEDICAID ==
[~2020-04-08] MED LIST changes: +BACL10TA2 PO; +IBUP80TA PO
[2020-04-08 14:31] LABS: CHLAMYDIA DNA AMPLIFICATION NEGATIVE (NEGATIVE); GC DNA AMPLIFICATION NEGATIVE (NEGATIVE)
[2020-04-09 09:09] LABS: HIV 1&2 SCREEN CENTAUR NEGATIVE (NEGATIVE)
== END ==
LOC: M SFHCPLAZ 08:40
PROVIDERS: ATTEND Family Medicine
DX: Z11.3 Encounter for screening for infections with a predominantly sexual mode of transmission (principal)

== ENCOUNTER → 2020-06-19 | Outpatient (REF) | payer BC, MEDICAID, OTHER ==
[2020-06-19 19:32] LABS: APPEARANCE, URINE CLOUDY (CLEAR); BACTERIA, URINE AUTO 1+ (NEGATIVE); BILIRUBIN, URINE AUTO NEGATIVE (NEGATIVE); BLOOD, URINE BLOOD NEGATIVE (NEGATIVE); COLOR, URINE YELLOW (YELLOW); GLUCOSE, URINE (UA) AUTO NEGATIVE (NEGATIVE); KETONE, URINE AUTO NEGATIVE (NEGATIVE); LEUKOCYTE ESTERASE, URINE AUTO 2+ (NEGATIVE); MUCUS, URINE SMALL (NEGATIVE); NITRITE, URINE AUTO NEGATIVE (NEGATIVE); PROTEIN, URINE AUTO NEGATIVE (NEGATIVE); RBC, URINE AUTO 7 /HPF (0-3); SPECIFIC GRAVITY URINE AUTO 1.019 (1.002-1.035); SQUAMOUS EPITHELIAL CELL UR AU 41 /HPF (0-6); UROBILINOGEN, URINE AUTO 0.2 mg/dL (0.0-2.0); WBC, URINE AUTO 19 /HPF (0-3)
== END ==
LOC: M LAB REF 19:12
PROVIDERS: ATTEND Family Medicine
DX: R30.0 Dysuria (principal)

== ENCOUNTER → 2020-11-26 | Outpatient (REF) | payer OTHER ==
[2020-11-26 16:09] LABS: HEMATOCRIT 38.5 % (36.0-47.0); HEMOGLOBIN 12.6 g/dl (12.0-15.5); MEAN CORPUSCULAR HEMOGLOBIN 29.1 pg (27.0-33.0); MEAN CORPUSCULAR HGB CONC 32.7 g/dl (32.0-36.5); MEAN CORPUSCULAR VOLUME 88.9 fl (80.0-96.0); PLATELET COUNT, AUTOMATED 245 10^3/uL (150-450); RED BLOOD COUNT 4.33 10^6/uL (4.00-5.40); WHITE BLOOD COUNT 8.5 10^3/uL (4.0-10.0)
[2020-11-26 17:22] LABS: HEPATITIS C VIRUS ABY INDEX 0.1 INDEX (<0.8); HIV 1&2 SCREEN CENTAUR NEGATIVE (NEGATIVE)
[2020-11-27 11:57] LABS: CHLAMYDIA DNA AMPLIFICATION POSITIVE (NEGATIVE); GC DNA AMPLIFICATION NEGATIVE (NEGATIVE)
== END ==
LOC: M PLALAB 12:52
PROVIDERS: ATTEND Advanced Practice Midwife
DX: Z34.91 Encounter for supervision of normal pregnancy, unspecified, first trimester (principal)

== ENCOUNTER → 2020-12-26 | Outpatient (REF) | payer OTHER | LOC: M SFHCWAGY 13:43 | PROVIDERS: ATTEND Obstetrics & Gynecology | DX: Z34.92 Encounter for supervision of normal pregnancy, unspecified, second trimester (principal) ==

== ENCOUNTER → 2021-01-01 | Outpatient (CLI) | payer OTHER ==
--- NOTE | 2021-01-01 12:20 | REP ---
INDICATION: ANATOMY. COMPARISON: None. TECHNIQUE: Multiple sonographic images of the gravid uterus. FINDINGS: There is a single intrauterine gestation. position is variable. The placenta is posterior with grade 1 maturity. There is no placenta previa. The placenta inserts centrally onto the placenta. There is a three-vessel cord. The cervix measures 3.0 cm. heart rate is 160 beats per minute. Subjectively the amniotic fluid volume is normal. The composite ultrasound gestational age is 19 weeks 6 days. The ROMAINE is 05/22/2021. The LMP is unknown. weight is 301 g/0 lb, 10 oz. This is greater than the 97th percentile for 18 weeks 4 days. The following anatomic structures are identified and are unremarkable: Cranium, cavum septum pellucidum, falx, intracranial ventricles, cerebellum, cisterna magna, nuchal fold, facial profile, upper lip, cardiac rhythm, four-chamber view of the heart, cardiac right left ventricular outflow tracts, diaphragm, stomach, abdominal wall including cord insertion, right and left kidneys, bladder, right and left upper extremities, right left lower extremities and 3 vessel cord. Some of the transverse use of the spine are suboptimal because of position. There are bilateral choroid plexus cysts. Follow-up study dedicated to these structures might be considered. IMPRESSION: Bilateral choroid plexus cysts. Some of the transverse views of the spine are suboptimal. Follow-up study dedicated to the structures might be considered. <Electronically signed by Aidan Chappell > 01/01/21 [id number]
== END ==
LOC: M WHC 09:00
PROVIDERS: ATTEND Advanced Practice Midwife
DX: Z36.9 Encounter for antenatal screening, unspecified (principal); Z3A.19 19 weeks gestation of pregnancy

== ENCOUNTER → 2021-01-30 | Outpatient (CLI) | payer OTHER | LOC: M PLALAB 11:07 | PROVIDERS: ATTEND Advanced Practice Midwife | DX: Z34.82 Encounter for supervision of other normal pregnancy, second trimester (principal); Z3A.00 Weeks of gestation of pregnancy not specified ==

== ENCOUNTER → 2021-02-25 | Outpatient (REF) | payer OTHER ==
[2021-02-25 13:25] LABS: HEMATOCRIT 35.4 % (36.0-47.0); HEMOGLOBIN 11.7 g/dl (12.0-15.5); MEAN CORPUSCULAR HEMOGLOBIN 31.6 pg (27.0-33.0); MEAN CORPUSCULAR HGB CONC 33.1 g/dl (32.0-36.5); MEAN CORPUSCULAR VOLUME 95.7 fl (80.0-96.0); PLATELET COUNT, AUTOMATED 234 10^3/uL (150-450)
== END ==
LOC: M PLALAB 08:58
PROVIDERS: ATTEND Specialist
DX: Z34.82 Encounter for supervision of other normal pregnancy, second trimester (principal)

== ENCOUNTER 2021-03-20 10:35 | Outpatient (CLI) | payer OTHER ==
[~2021-03-20] VITALS: Ht 177.8 cm; Wt 76.2 kg
[2021-03-20] MEDS ORDERED: LR 1,000 ML IV SCH (10:50)
[2021-03-20] MEDS ORDERED: ONDANSETRON 4MG/2ML VIAL IV PRN (10:50)
[2021-03-20] MEDS ORDERED: LACTATED RINGER'S 1000 ML IV ONE (10:50)
[2021-03-20] MEDS ORDERED: ACETAMINOPHEN 500 MG TAB PO PRN (10:50)
[2021-03-20 10:59] VITALS: BP 117/71
[2021-03-20] MEDS ORDERED: TUMS500C PO (11:03)
[2021-03-20] MEDS ORDERED: PRENTAB9 PO (11:03)
[2021-03-20] MEDS ORDERED: ZOFR4TAB16 PO (11:03)
[2021-03-20] MEDS ORDERED: ACET325C5 PO (11:03)
[2021-03-20 11:26] LABS: APPEARANCE, URINE TURBID (CLEAR); BACTERIA, URINE AUTO 1+ (NEGATIVE); BILIRUBIN, URINE AUTO NEGATIVE (NEGATIVE); BLOOD, URINE BLOOD 1+ (NEGATIVE); COLOR, URINE YELLOW (YELLOW); GLUCOSE, URINE (UA) AUTO 1+ mg/dL (NEGATIVE); KETONE, URINE AUTO NEGATIVE (NEGATIVE); LEUKOCYTE ESTERASE, URINE AUTO 3+ (NEGATIVE); MUCUS, URINE SMALL (NEGATIVE); NITRITE, URINE AUTO NEGATIVE (NEGATIVE); PROTEIN, URINE AUTO 2+ mg/dL (NEGATIVE); RBC, URINE AUTO 54 /HPF (0-3); SPECIFIC GRAVITY URINE AUTO 1.009 (1.002-1.035); SQUAMOUS EPITHELIAL CELL UR AU 5 /HPF (0-6); UROBILINOGEN, URINE AUTO 0.2 mg/dL (0.0-2.0); WBC, URINE AUTO TNTC /HPF (0-3)
[2021-03-20 11:42] LABS: BASO % 0.3 % (0.0-1.0); EOS % 0.4 % (0.0-3.0); HEMATOCRIT 36.5 % (36.0-47.0); HEMOGLOBIN 12.2 g/dl (12.0-15.5); LYMPH # 0.8 10^3/uL (1.5-5.0); LYMPH % 7.6 % (24.0-44.0); MEAN CORPUSCULAR HGB CONC 33.4 g/dl (32.0-36.5); MEAN CORPUSCULAR VOLUME 92.6 fl (80.0-96.0); MONO % 9.3 % (2.0-8.0); NEUTROPHILS # 8.8 10^3/uL (1.5-8.5); PLATELET COUNT, AUTOMATED 225 10^3/uL (150-450); RED BLOOD COUNT 3.94 10^6/uL (4.00-5.40); WHITE BLOOD COUNT 10.8 10^3/uL (4.0-10.0)
[2021-03-20] MEDS ORDERED: ceFAZolin SOD 2 GM in IV 1 EA IV SCH (12:00)
[2021-03-20 12:59] VITALS: BP 106/66
[2021-03-20 13:18] LABS: BLOOD UREA NITROGEN 5 MG/DL (7-18); CARBON DIOXIDE LEVEL 25 mmol/L (20-29); CHLORIDE LEVEL 104 MEQ/L (98-107); CREATININE FOR GFR 0.43 MG/DL (0.55-1.30); GLOMERULAR FILTRATION RATE > 60.0 (>60); GLUCOSE, FASTING 78 MG/DL (70-100); SODIUM LEVEL 137 MEQ/L (136-145)
[2021-03-20 13:19] LABS: ALBUMIN 2.7 GM/DL (3.2-5.2); ALT/SGPT 17 IU/L (0-32); BILIRUBIN,TOTAL 0.4 MG/DL (0.2-1.0); CALCIUM LEVEL 8.6 MG/DL (8.5-10.1); TOTAL PROTEIN 6.2 GM/DL (6.4-8.2)
[2021-03-20 14:47] VITALS: BP 111/65
--- NOTE | 2021-03-20 14:59 | REP ---
INDICATION: N/V RUQ pain, 29 wks gestation. COMPARISON: None. TECHNIQUE: Real-time sonographic evaluation of ABDOMEN performed. FINDINGS: The gallbladder lumen is filled with calculi. There is no gallbladder wall thickening or pericholecystic fluid.. There is no intrahepatic or extrahepatic biliary dilatation, common bile duct measures 3 mm in maximum diameter. The liver demonstrates homogeneous echotexture with no gross mass. Pancreas is not well seen due to overlying bowel gas. Spleen is mildly enlarged measuring 14.0 cm in length. There is mild right hydronephrosis and proximal hydroureter. No renal stone is seen. There is moderate to moderately severe left hydronephrosis and proximal to mid hydroureter. There is debris in the renal pelvis. With duplex Doppler evaluation resistive index bilaterally is 0.63. In the urinary bladder with Doppler color evaluation a right ureteral jet is visualized. A left ureteral jet is not seen which may indicate some degree of left ureteral obstruction. The right kidney measures 13.7 x 5.6 x 5.3 cm. Left renal dimensions are 15.1 x 5.5 x 6.0 cm. The abdominal aorta is normal in caliber with no aneurysm. No free fluid is seen. The intrauterine fetus demonstrates a heart rate of 157 beats per minute. IMPRESSION: Gallstones fill the gallbladder lumen with no evidence of gallbladder wall thickening, pericholecystic fluid or biliary dilatation. Mild right hydronephrosis and proximal hydroureter. Moderate to moderately severe left hydronephrosis with proximal and mid left hydroureter. Debris is seen in the left renal pelvis. In the urinary bladder a right ureteral jet is visualized. A left ureteral jet is not seen which may indicate some degree of left ureteral obstruction. <Electronically signed by Aidan Chan > 03/20/21 [id number]
--- NOTE | 2021-03-20 15:53 | IPNPDOC ---
Text Note Date of Service The patient was seen on 03/20/21. NOTE Outpatient 25yo ROMAINE 05/31/2021. Presents @ 29wks with complaints of intermittent fever of the past days associated with nausea, vomiting, epigastric pain that radiates to her umbilicus and into her back. Reports good movement and BHC. Denies LOF, bleeding or regular UC. Appears generally ill. Cat I tracing VS as below UA 2+ protein, 1+ glucose, 3+ leuk esterase, 1+ blood, WBC TNTC, RBS 54, 1+ bacteria Sono shows gallbladder lumen full of calculi. Renal sono shows mild right hydronephrosis with proximal hydroureter. Moderate to moderately severe left hydronephrosis with proximal to mid hydroureter. Debris in the renal pelvis. Possible left ureteral obstruction, no discrete stone noted Reviewed patient status with Dr Woodward. Ancef 2gm Q 8HRs, IV hydration, tylenol. Outpatient referral to general surgery placed. Requested consult with urology. VS,Raule, I+O VS, Fishbone, I+O Laboratory Tests 03/20/21 10:59 Vital Signs Date Time Temp Pulse Resp B/P (MAP) Pulse Ox O2 Delivery O2 Flow Rate FiO2 03/20/21 15:40 100.2 03/20/21 14:47 105 16 111/65 (80) Judy Saravia CNM Mar 20, 2021 15:53
--- NOTE | 2021-03-20 16:26 | IPNPDOC ---
Text Note Date of Service The patient was seen on 03/20/21. NOTE Outpatient Pt status reviewed with Dr Canseco, Urology. Rec stat nephrostomy tube. Contacted interventional radiology, Dr Garcia. Not available at this time Recommended transport to [place] for placement. Pt and mother informed. Agreed to transfer. Contacted [facility] for further instructions for transfer. VS,Fishbone, I+O VS, Fishbone, I+O Laboratory Tests 03/20/21 10:59 Vital Signs Date Time Temp Pulse Resp B/P (MAP) Pulse Ox O2 Delivery O2 Flow Rate FiO2 03/20/21 15:40 100.2 03/20/21 14:47 105 16 111/65 (80) Judy Saravia CNM Mar 20, 2021 16:26
--- NOTE | 2021-03-20 17:05 | IPNPDOC ---
Text Note Date of Service The patient was seen on 03/20/21. NOTE Outpatient Spoke with Dr Adhikari @ [facility], agreed to accept patient. Dr Canseco her to speak with patient and discussed rationale for nephrostomy tube and transpport. Patient agrees to transport Cat I tracing continues. VS,Fishbone, I+O VS, Fishbone, I+O Laboratory Tests 03/20/21 10:59 Vital Signs Date Time Temp Pulse Resp B/P (MAP) Pulse Ox O2 Delivery O2 Flow Rate FiO2 03/20/21 15:40 100.2 03/20/21 14:47 105 16 111/65 (80) Judy Saravia CNM Mar 20, 2021 17:05
== END 2021-03-20 17:25 | disposition other institution (70) ==
LOC: M LDO 10:35
PROVIDERS: ATTEND Advanced Practice Midwife
DX: O26.893 Other specified pregnancy related conditions, third trimester (principal); Z3A.29 29 weeks gestation of pregnancy; R51.9 Headache, unspecified; O99.613 Diseases of the digestive system complicating pregnancy, third trimester; K80.20 Calculus of gallbladder without cholecystitis without obstruction
CPT/HCPCS: 76700; 80053; 81001; 85025; 87086; 96365; 96366; J0690; U0002

== ENCOUNTER 2021-05-22 04:04 | Inpatient (IN) | payer OTHER ==
[~2021-05-22] VITALS: Ht 177.8 cm; Wt 78.4 kg
[2021-05-22] VITALS (38 sets, daily range): BP systolic 101–138; BP diastolic 60–95
[~2021-05-22 04:04] MED LIST changes: +ACET325C5 PO; +PRENTAB9 PO; +TUMS500C PO; +ZOFR4TAB16 PO
[2021-05-22] MEDS ORDERED: OMEP-218 PO (04:19)
[2021-05-22] MEDS ORDERED: HOME MED LIST COMPLETE! XX SCH (04:20)
[2021-05-22] MEDS ORDERED: ceFAZolin SOD 2 GM in IV 1 EA IV STA (05:30)
[2021-05-22 05:37] LABS: HEMATOCRIT 35.8 % (36.0-47.0); HEMOGLOBIN 11.9 g/dl (12.0-15.5); MEAN CORPUSCULAR HEMOGLOBIN 30.9 pg (27.0-33.0); MEAN CORPUSCULAR HGB CONC 33.2 g/dl (32.0-36.5); PLATELET COUNT, AUTOMATED 230 10^3/uL (150-450); RED BLOOD COUNT 3.85 10^6/uL (4.00-5.40); WHITE BLOOD COUNT 10.4 10^3/uL (4.0-10.0)
--- NOTE | 2021-05-22 05:46 | HPEPDOC ---
Obstetrical History & Physical General Date of Admission May 22, 2021 at 05:18 History of Present Illness 25 yo female at 38 5/7 weeks by LMP c/w 9 week ultrasound (EDC=05/31/2021) presents with regular contractions for the past several hours. good movement. no loss of fluid. Chief Complaint: Contractions, term Information Provided By: Patient Age: 25 : 2 Term: 1 Pre-term: 0 Abortions: 0 Livin Care Care: Good Care Dating Final EDC: May 31, 2021 Final EDC by: LMP, 1st trimester (US) Antepartum Course Diagnos(e)s likely nephrolithiasis at 26 weeks; transferred to [place] for nephrostomy tube (not placed) Past Medical History Past Obstetrical History : Type of Delivery: Spontaneous Vaginal Del. Past Medical History Medical History OB hx: TSVD x 1 med hx: Kidney stones Social History Marital Status: Single Family situation: Spouse/partner home Psychosocial History: No pertinent psych hx * Smoker: non-smoker Allergies Coded Allergies: amoxicillin (Verified Adverse Reaction, Unknown, severe abd pain, 06/24/19) clavulanic acid (Verified Adverse Reaction, Unknown, severe abd pain, 06/24/19) Medications Scheduled Calcium Carbonate (Tums) 200 Mg Tab.chew, 2 TAB PO Q4H for cough and congestion Omeprazole (Omeprazole) 20 Mg Capsule.dr, 20 MG PO DAILY No.137/Iron/Folic Acd ( Vitamin Tablet) 1 Each Tablet, 1 TAB PO DAILY Scheduled PRN Ondansetron HCl (Zofran) 4 Mg Tablet, 1 TAB PO Q6-8HP PRN for nausea/vomiting Physical Examination Physical Examination GENERAL: Alert and oriented times three. BREAST: . ABDOMEN: Gravid and non-tender to touch. FETUS: Is vertex (VTX) by sterile vaginal examination (SVE), fetus is vertex (VTX) by Hal. HEART RATE: Regular rate and rhythm. LUNGS: Clear to auscultation (CTA). EXTREMITIES: No edema. No clonus. Deep tendon reflexes (DTRs) + . Vital Signs/I&O Vital Signs Date Time Temp Pulse Resp B/P (MAP) Pulse Ox O2 Delivery O2 Flow Rate FiO2 05/22/21 04:19 98.1 79 16 135/83 (100) Laboratory Data 24H LABS Laboratory Tests 2 05/22/21 05:27: Serology Scanned Report Hepatitis B Testing 05/22/21 05:29: Nucleated Red Blood Cells % (auto) 0.0 CBC/BMP Laboratory Tests 05/22/21 05:29 Pertinent Laboratoy Data Blood Type: A+ Group B Streptococcus: Positive Vaginal Examination Dilation: 3 cm Effacement: 80% Station: -1 Cervical Consistency: Soft Cervical Position: Posterior Presentation: Cephalic presentation Assessment Variability: Moderate Accelerations: Positive Decelerations: None Tocometer Contractions: Yes Frequency: regular Assessment/Plan Assessment Pt is a 25-year-old (G)2 para (P)1001 at 38+5 weeks by LMP c/w 9 -week ultrasound (EDC=05/31/2021) presents to Labor and Delivery in labor. Plan Admit and orient. 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 Diet: clear liquids. Group B Streptococcus (GBS) positive. Labs and intravenous (IV) per unit protocol. Counseled on Pitocin and induction of labor (IOL). C-S as appropriate. KB CHÁVEZ MD May 22, 2021 05:46
[2021-05-22] MEDS ORDERED: LACTATED RINGER'S 1000 ML IV STA (05:47)
[2021-05-22] MEDS ORDERED: LR 1,000 ML IV SCH (05:50)
[2021-05-22] MEDS ORDERED: FENTANYL 2MCG/ML ROPIVACAINE 0.2% IN 0.9% NACL 100ML IVBAG As Ordered ONE ×2 (06:38→06:40)
[2021-05-22] MEDS ORDERED: EPIDURAL/PCA KEYS XX PRN (07:20)
[2021-05-22] MEDS ORDERED: ePHEDrine SULFATE 25 MG/5 ML(5MG/ML) SYRINGE IV PRN (07:20)
[2021-05-22] MEDS ORDERED: LACTATED RINGER'S 1000 ML IV PRN (07:20)
[2021-05-22] MEDS ORDERED: REFRIGERATOR IV KEYS XX PRN (07:20)
[2021-05-22] MEDS ORDERED: NALOXONE INJ 0.4MG/1ML VIAL (J2310 PER 1MG) IV PRN (07:20)
[2021-05-22] MEDS ORDERED: EPIDURAL COMMENT XX SCH (07:20)
[2021-05-22] MEDS ORDERED: diphenhydrAMINE 50MG/ML VIAL (J1200) IV PRN (07:20)
[2021-05-22] MEDS ORDERED: FENTANYL/ROPIVACAINE/NACL BAG 100 ML EPIDURAL SCH (07:20)
[2021-05-22] MEDS ORDERED: ONDANSETRON 4MG/2ML VIAL IV PRN (07:20)
--- NOTE | 2021-05-22 08:04 | IPNPDOC ---
Text Note Date of Service The patient was seen on 05/22/21. NOTE Progress Comfortable with epidural UC 2-5 minutes x 45-60 seconds FH Cat I SVE 5/80/-2, BBOW, light show AROM after antibiotic in 4hrs. Anticipate NSVB VS,Fishbone, I+O VS, Fishbone, I+O Laboratory Tests 05/22/21 05:29 Vital Signs Date Time Temp Pulse Resp B/P (MAP) Pulse Ox O2 Delivery O2 Flow Rate FiO2 05/22/21 07:06 68 116/72 (87) 05/22/21 07:02 16 05/22/21 04:19 98.1 Judy Saravia CNM May 22, 2021 08:04
[2021-05-22] MEDS ORDERED: METHYLERGONOVINE MALEATE 0.2 MG/ML VIAL (J2210) IM ONE (08:05)
[2021-05-22] MEDS ORDERED: LIDOCAINE 1% MDV 20ML VIAL INFIL ONE (08:05)
[2021-05-22] MEDS ORDERED: OXYTOCIN DRIP 30 UNITS in IV 1 EA IV SCH ×2 (08:45→11:40)
--- NOTE | 2021-05-22 10:03 | IPNPDOC ---
Text Note Date of Service The patient was seen on 05/22/21. NOTE Progress AROM large amount clear fluid 0959 5-6/80/-1 Cat I tracing Anticipate NSVB VS,Pascual, I+O VS, Pascual, I+O Laboratory Tests 05/22/21 05:29 Vital Signs Date Time Temp Pulse Resp B/P (MAP) Pulse Ox O2 Delivery O2 Flow Rate FiO2 05/22/21 09:30 61 18 117/65 (82) Room Air 05/22/21 07:32 99.0 Judy Saravia CNM May 22, 2021 10:03
[2021-05-22] MEDS ORDERED: MEASLES,MUMPS,RUBELLA VACCINE INJ (MMR-II) (90707) SC SCH (11:40)
[2021-05-22] MEDS ORDERED: ANUSOL HC CREAM 30GM TOP PRN (11:40)
[2021-05-22] MEDS ORDERED: ACETAMINOPHEN 500 MG TAB PO PRN (11:40)
[2021-05-22] MEDS ORDERED: METHYLERGONOVINE MALEATE 0.2 MG TAB PO PRN (11:40)
[2021-05-22] MEDS ORDERED: IBUPROFEN 600MG TAB PO PRN (11:40)
[2021-05-22] MEDS ORDERED: MOM 30ML SUSPENSION UDC PO PRN (11:40)
[2021-05-22] MEDS ORDERED: DOCUSATE SODIUM 100MG CAPSULE PO PRN (11:40)
[2021-05-22] MEDS ORDERED: RHOGAM 300 MCG (1500 IU) INJ (J2790) IM SCH (11:40)
[2021-05-22] MEDS ORDERED: ACETAMINOPHEN TAB 650MG DOSE (2X325MG) PO PRN (11:40)
[2021-05-22] MEDS ORDERED: DIBUCAINE 1% OINTMENT 30GM TOP PRN (11:40)
[2021-05-22] MEDS ORDERED: IBUPROFEN 800 MG TAB PO PRN (11:40)
--- NOTE | 2021-05-22 12:53 | DNPDOC ---
[facility] Delivery Note Delivery Note DATE OF DELIVERY: 05/22/2021 PREDELIVERY DIAGNOSIS: 38+1/7 weeks' gestation and labor. POST DELIVERY DIAGNOSIS: Delivered. PROCEDURE: Spontaneous vaginal delivery. PROVIDER: Judy Saravia CNM ANESTHESIA: Epidural ESTIMATED BLOOD LOSS: 100 mL. FINDINGS: 7 pound 4 ounce, 3280gm male infant, Score 8/9, no nuchal cord. DELIVERY SUMMARY: Patient is a 25-year-old 2 now para 2-0-0-2 who was admitted to labor and delivery for active labor. She utilized an epidural for labor coping and progressed under her own fong. Adequate GBS prophylaxis was provided prior to AROM clear fluid 0959. Fully dilated, + 3 station 1113. Viable male delivered without difficulty @ 1120. Spontaneous respirations, transitioned on maternal abdomen. Cord doubly clamped and cut by FOB under my direction once pulsations ceased. Placenta bradford, intact with 3v cord @ 1126. Fundus firmed with massage and IV premixed pitocin bolus. EBL 100ml. Small periurethral abrasion reapproximated with 2 suture of 3-0 vicryl rapide in the usual fashion. Sponge, sharp and instrument count correct. Mother and son doing well in the immediate period. Judy Saravia CNM May 22, 2021 10:03
[2021-05-22] MEDS ORDERED: ceFAZolin SOD 1 GM in D5W MINI-BAG PLUS 50 ML IV SCH (14:00)
[2021-05-23 06:18] VITALS: BP 96/60
--- NOTE | 2021-05-23 08:24 | IPNPDOC ---
Progress Note Date of Service: May 23, 2021 Day#: 1 Progress Note SUBJECT: Doing well without complaints. Ambulating, voiding and pain is well-c ontrolled. Reports minimal lochia. OBJECTIVE: VITAL SIGNS: Within normal limits, afebrile. Alert and oriented times three. Abdomen: Fundus firm at U-2. Soft, NTTP. Ext: neg calf tenderness. ASSESSMENT: day #1 status post . Recovering in stable condition. PLAN: 1. Continue routine care 2. Discharge plans for tomorrow VS, I&O, 24H, Fishbone Vital Signs/I&O Vital Signs Date Time Temp Pulse Resp B/P (MAP) Pulse Ox O2 Delivery O2 Flow Rate FiO2 05/23/21 06:18 97.8 53 16 96/60 (72) 05/22/21 17:48 Room Air I&O- Last 24 Hours up to 6 AM 05/23/21 06:00 Intake Total 1955 ml Output Total 975 ml Balance 980 ml PAVEL ARMAS MD. May 23, 2021 08:24
[2021-05-23] MEDS ORDERED: PRENATAL VITAMINS CHEWABLE TABLET PO SCH (09:00)
== END 2021-05-23 17:40 | disposition home or self-care (01) | DRG 560 ==
LOC: M LDO 04:04 → M LDI 05:18 → M OBS 13:54
PROVIDERS: ADMIT Specialist; ATTEND Advanced Practice Midwife
PROC: 10E0XZZ Delivery of Products of Conception, External Approach (ICD-10-PCS; principal; 2021-05-22)
PROC: 10907ZC Drainage of Amniotic Fluid, Therapeutic from Products of Conception, Via Natural or Artificial Opening (ICD-10-PCS; 2021-05-22)
DX: O99.824 Streptococcus B carrier state complicating childbirth (principal); Z3A.38 38 weeks gestation of pregnancy; Z37.0 Single live birth

== ENCOUNTER → 2023-06-14 | Outpatient (REF) | payer OTHER ==
[~2023-06-14] MED LIST changes: +OMEP-173 PO
== END ==
LOC: M PLALAB 14:27
PROVIDERS: ATTEND Advanced Practice Midwife
DX: Z34.81 Encounter for supervision of other normal pregnancy, first trimester (principal); Z53.9 Procedure and treatment not carried out, unspecified reason

== ENCOUNTER → 2023-06-21 | Outpatient (CLI) | payer OTHER ==
[2023-06-21 13:48] LABS: HEMATOCRIT 38.7 % (36.0-47.0); MEAN CORPUSCULAR HGB CONC 33.6 g/dl (32.0-36.5); MEAN CORPUSCULAR VOLUME 89.4 fl (80.0-96.0); PLATELET COUNT, AUTOMATED 219 10^3/uL (150-450); RED BLOOD COUNT 4.33 10^6/uL (4.00-5.40); WHITE BLOOD COUNT 7.4 10^3/uL (4.0-10.0)
[2023-06-21 14:50] LABS: HIV 1&2 SCREEN NEGATIVE (NEGATIVE)
[2023-06-21 14:59] LABS: HEPATITIS C VIRUS ABY INDEX 0.13 INDEX (<0.8)
[2023-06-21 15:14] LABS: GC DNA AMPLIFICATION NEGATIVE (NEGATIVE)
== END ==
LOC: M PLALAB 08:49
PROVIDERS: ATTEND Advanced Practice Midwife
DX: Z34.81 Encounter for supervision of other normal pregnancy, first trimester (principal)

== ENCOUNTER → 2023-06-29 | Outpatient (CLI) | payer OTHER | LOC: M PLALAB 08:31 | PROVIDERS: ATTEND Advanced Practice Midwife | DX: Z34.80 Encounter for supervision of other normal pregnancy, unspecified trimester (principal); Z3A.00 Weeks of gestation of pregnancy not specified ==

== ENCOUNTER → 2023-07-13 | Outpatient (REF) | payer OTHER | LOC: M PLALAB 09:54 | PROVIDERS: ATTEND Advanced Practice Midwife | DX: Z34.82 Encounter for supervision of other normal pregnancy, second trimester (principal) ==

== ENCOUNTER → 2023-08-15 | Outpatient (REF) | payer OTHER | LOC: M SFHCWAGY 09:52 | PROVIDERS: ATTEND Obstetrics & Gynecology | DX: Z34.92 Encounter for supervision of normal pregnancy, unspecified, second trimester (principal) ==

== ENCOUNTER → 2023-08-22 | Outpatient (CLI) | payer OTHER | LOC: M WHC 10:09 | PROVIDERS: ATTEND Advanced Practice Midwife | DX: Z34.82 Encounter for supervision of other normal pregnancy, second trimester (principal); Z3A.20 20 weeks gestation of pregnancy ==

== ENCOUNTER 2023-10-09 17:13 | Outpatient (CLI) | payer OTHER ==
[~2023-10-09] VITALS: Ht 177.8 cm; Wt 86.5 kg
[2023-10-09] MEDS ORDERED: ACET325C5 PO (17:29)
[2023-10-09 17:30] VITALS: BP 133/83
[2023-10-09] MEDS ORDERED: HOME MED LIST COMPLETE! XX SCH (17:30)
[2023-10-09 18:30] LABS: APPEARANCE, URINE CLOUDY (CLEAR); BACTERIA, URINE AUTO NEGATIVE (NEGATIVE); BILIRUBIN, URINE AUTO NEGATIVE (NEGATIVE); BLOOD, URINE BLOOD NEGATIVE (NEGATIVE); COLOR, URINE YELLOW (YELLOW); GLUCOSE, URINE (UA) AUTO NEGATIVE (NEGATIVE); KETONE, URINE AUTO NEGATIVE (NEGATIVE); LEUKOCYTE ESTERASE, URINE AUTO 3+ (NEGATIVE); NITRITE, URINE AUTO NEGATIVE (NEGATIVE); PROTEIN, URINE AUTO 2+ mg/dL (NEGATIVE); RBC, URINE AUTO 22 /HPF (0-3); SPECIFIC GRAVITY URINE AUTO 1.011 (1.002-1.035); SQUAMOUS EPITHELIAL CELL UR AU 2 /HPF (0-6); UROBILINOGEN, URINE AUTO 0.2 mg/dL (0.0-2.0); WBC, URINE AUTO TNTC /HPF (0-3)
[2023-10-09] MEDS ORDERED: NITROFURANTOIN (MACROBID) 100 MG CAP PO ONE (18:40)
[2023-10-09] MEDS ORDERED: PHENAZOPYRIDINE 100 MG TAB PO ONE (19:00)
== END 2023-10-09 19:10 | disposition home or self-care (01) ==
LOC: M LDO 17:13
PROVIDERS: ATTEND Specialist
DX: O23.42 Unspecified infection of urinary tract in pregnancy, second trimester (principal); Z3A.26 26 weeks gestation of pregnancy
CPT/HCPCS: 59025; 76815; 81001; G0463

== ENCOUNTER → 2023-10-24 | Outpatient (CLI) | payer OTHER | LOC: M RAD 08:58 | PROVIDERS: ATTEND Specialist | DX: Z34.82 Encounter for supervision of other normal pregnancy, second trimester (principal); Z3A.28 28 weeks gestation of pregnancy ==

== ENCOUNTER → 2023-10-28 | Outpatient (CLI) | payer OTHER ==
[2023-10-28 10:43] LABS: HEMATOCRIT 34.1 % (36.0-47.0); HEMOGLOBIN 11.2 g/dl (12.0-15.5); MEAN CORPUSCULAR HEMOGLOBIN 30.2 pg (27.0-33.0); MEAN CORPUSCULAR HGB CONC 32.8 g/dl (32.0-36.5); MEAN CORPUSCULAR VOLUME 91.9 fl (80.0-96.0); PLATELET COUNT, AUTOMATED 300 10^3/uL (150-450); RED BLOOD COUNT 3.71 10^6/uL (4.00-5.40); WHITE BLOOD COUNT 10.5 10^3/uL (4.0-10.0)
== END ==
LOC: M PLALAB 08:08
PROVIDERS: ATTEND Family Medicine
DX: Z34.82 Encounter for supervision of other normal pregnancy, second trimester (principal)

== ENCOUNTER 2023-11-21 13:48 | Outpatient (CLI) | payer OTHER ==
[~2023-11-21] VITALS: Ht 177.8 cm; Wt 89.0 kg
[2023-11-21 14:07] VITALS: BP 141/89
[2023-11-21] MEDS ORDERED: HOME MED LIST COMPLETE! XX SCH (14:10)
[2023-11-21 14:23] VITALS: BP 139/91
[2023-11-21 14:38] VITALS: BP 135/93
[2023-11-21 15:16] LABS: HEMATOCRIT 32.3 % (36.0-47.0); HEMOGLOBIN 10.6 g/dl (12.0-15.5); MEAN CORPUSCULAR HEMOGLOBIN 28.4 pg (27.0-33.0); MEAN CORPUSCULAR HGB CONC 32.8 g/dl (32.0-36.5); MEAN CORPUSCULAR VOLUME 86.6 fl (80.0-96.0); PLATELET COUNT, AUTOMATED 299 10^3/uL (150-450); RED BLOOD COUNT 3.73 10^6/uL (4.00-5.40); WHITE BLOOD COUNT 11.3 10^3/uL (4.0-10.0)
[2023-11-21 15:27] VITALS: BP 137/79
[2023-11-21 15:27] LABS: URIC ACID 2.4 MG/DL (3.1-7.8)
[2023-11-21 15:29] LABS: LDH LACTATE DEHYDROGENASE 202 U/L (120-246)
[2023-11-21 15:30] LABS: ALT/SGPT 19 U/L (7.0-40); AST/SGOT 24 U/L (<34); BILIRUBIN,TOTAL 0.3 MG/DL (0.3-1.2); CREATININE FOR GFR 0.51 MG/DL (0.55-1.30); GLOMERULAR FILTRATION RATE > 60.0 (>60)
[2023-11-21 16:13] LABS: TOTAL PROTEIN,RANDOM URINE 25.8 MG/DL (0.0-14.0)
[2023-11-21 16:18] LABS: CREATININE,RANDOM URINE 62.6 MG/DL
[2023-11-21 16:20] VITALS: BP 142/88
== END 2023-11-21 16:49 | disposition home or self-care (01) ==
LOC: M LDO 13:48
PROVIDERS: ATTEND Advanced Practice Midwife
DX: O36.8130 Decreased fetal movements, third trimester, not applicable or unspecified (principal); O16.3 Unspecified maternal hypertension, third trimester; Z3A.32 32 weeks gestation of pregnancy
CPT/HCPCS: 36415; 59025; 76815; 82247; 82570; 83615; 84156; 84450; 84460; 84550; 85027; G0463

== ENCOUNTER 2023-11-26 01:45 | Inpatient (IN) | payer OTHER ==
[2023-11-26] VITALS (15 sets, daily range): BP systolic 113–142; BP diastolic 57–86
[~2023-11-26] VITALS: Ht 177.8 cm; Wt 88.2 kg
[2023-11-26] MEDS: ONDANSETRON 4MG 2ML VIAL IV PRN (02:40)
[2023-11-26] MEDS: LR 1,000 ML IV ONE (02:40)
[2023-11-26] MEDS ORDERED: TRANEXAMIC ACID INJection 1,000 MG in NS 100 ML IV PRN (04:20)
[2023-11-26] MEDS ORDERED: OXYTOCIN DRIP 30 UNITS in IV 1 EA IV PRN (04:20)
[2023-11-26] MEDS ORDERED: LIDOCAINE 1% MDV 20ML VIAL INFIL PRN (04:20)
[2023-11-26] MEDS ORDERED: METHYLERGONOVINE MALEATE 0.2MG/ML 1ML VIAL IM PRN (04:20)
[2023-11-26] MEDS ORDERED: CARBOPROST TROMETHAMINE 250 MCG/ML AMP IM PRN (04:20)
[2023-11-26] MEDS ORDERED: CALCIUM GLUCONATE 1,000 MG in D5W MINI-BAG PLUS 100 ML IV PRN (04:20)
[2023-11-26] MEDS: MAG Sulf (L&D) 4 GM/100 ML 4 GM in IV 1 EA IV ONE (05:00)
[2023-11-26 05:06] LABS: BASO % 0.2 % (0.0-1.0); EOS # 0.1 10^3/uL (0.0-0.5); EOS % 0.7 % (0.0-3.0); HEMATOCRIT 34.1 % (36.0-47.0); HEMOGLOBIN 11.2 g/dl (12.0-15.5); LYMPH # 0.7 10^3/uL (1.5-5.0); LYMPH % 5.4 % (24.0-44.0); MEAN CORPUSCULAR HEMOGLOBIN 27.8 pg (27.0-33.0); MEAN CORPUSCULAR HGB CONC 32.8 g/dl (32.0-36.5); MEAN CORPUSCULAR VOLUME 84.6 fl (80.0-96.0); MONO # 0.7 10^3/uL (0.0-0.8); MONO % 5.2 % (2.0-8.0); NEUTROPHILS # 11.8 10^3/uL (1.5-8.5); NEUTROPHILS % 88.1 % (36.0-66.0); PLATELET COUNT, AUTOMATED 315 10^3/uL (150-450); RED BLOOD COUNT 4.03 10^6/uL (4.00-5.40); WHITE BLOOD COUNT 13.4 10^3/uL (4.0-10.0)
[2023-11-26] MEDS: BETAMETHASONE SOLUSPAN 6MG/ML 5ML VIAL IM SCH ×2 (05:16→17:19)
[2023-11-26] MEDS: LR 1,000 ML IV SCH (05:17)
[2023-11-26] MEDS: MAG Sulf (OBGYN) 20GM/500ML 20,000 MG in IV 1 EA IV SCH (05:34)
[2023-11-26] MEDS: PENICILLIN G POTASSIUM 5 MU IV 5 MU in D5W MINI-BAG PLUS 100 ML IV STA (05:38)
[2023-11-26] MEDS ORDERED: FENTANYL/ROPIVACAINE/NACL BAG 100 ML EPIDURAL SCH (08:35)
[2023-11-26] MEDS ORDERED: ePHEDrine SULFATE 25 MG/5 ML(5MG/ML) SYRINGE IVP PRN (08:35)
[2023-11-26] MEDS ORDERED: LR 500 ML IV PRN (08:35)
[2023-11-26] MEDS ORDERED: NALOXONE INJ 0.4MG/1ML VIAL IV PRN (08:35)
[2023-11-26] MEDS ORDERED: diphenhydrAMINE 50MG/ML VIAL IV PRN (08:35)
[2023-11-26] MEDS ORDERED: ONDANSETRON 4MG 2ML VIAL IV PRN (08:35)
[2023-11-26] MEDS ORDERED: EPIDURAL/PCA KEYS XX PRN (08:35)
[2023-11-26] MEDS: PEN G POT 3,000,000 UNIT/50 ML 3,000,000 UNIT in IV 1 EA IV SCH (10:53)
[2023-11-27] VITALS (13 sets, daily range): BP systolic 107–142; BP diastolic 53–90; TEMP 97.6; O2SAT 96–100
[2023-11-27] MEDS ORDERED: PEN G POT 3,000,000 UNIT/50 ML 3,000,000 UNIT in IV 1 EA IV SCH (10:00)
[2023-11-27] MEDS: AZITHROMYCIN INJ 500 MG, VIAL MATE ADAPTER 1 EACH in NS 250 ML IV ONE (10:19)
[2023-11-27] MEDS: ceFAZolin SOD 2 GM in IV 1 EA IV ONE (10:19)
[2023-11-27] MEDS: BICITRA 30ML SOLN UDC PO ONE (10:19)
[2023-11-27] MEDS ORDERED: diphenhydrAMINE 50MG/ML VIAL IV PRN (10:20)
[2023-11-27] MEDS ORDERED: fentaNYL 100 MCG/2 ML INJECTION IV PRN (10:20)
[2023-11-27] MEDS ORDERED: METOCLOPRAMIDE INJ 10MG/2ML VIAL IV PRN ×2 (10:20→12:05)
[2023-11-27] MEDS ORDERED: oxyCODONE 5MG TAB PO PRN (10:20)
[2023-11-27] MEDS ORDERED: NALOXONE INJ 0.4MG/1ML VIAL IV PRN ×2 (10:20)
[2023-11-27] MEDS ORDERED: **NOTE PATIENT COMMENT** MISC XX SCH (10:20)
[2023-11-27] MEDS ORDERED: SLF 3 ML SYR IV SCH (10:20)
[2023-11-27] MEDS ORDERED: ONDANSETRON 4MG 2ML VIAL IV PRN ×2 (10:20→11:20)
[2023-11-27] MEDS ORDERED: LR 1,000 ML IV SCH (10:20)
[2023-11-27] MEDS ORDERED: MORPHINE PRES-FREE INJ 10 MG/10 ML VIAL As Ordered ONE (10:23)
[2023-11-27] MEDS ORDERED: OXYTOCIN 30UNITS IN 0.9% NaCl 500ML IV BAG As Ordered ONE (10:35)
[2023-11-27] MEDS ORDERED: ACETAMINOPHEN 1000MG 100ML IV BAG As Ordered ONE (10:35)
[2023-11-27] MEDS ORDERED: PHENYLephrine 500MCG 5ML (100MCG/ML) SYRINGE As Ordered ONE (10:44)
[2023-11-27] MEDS ORDERED: ONDANSETRON 4MG 2ML VIAL As Ordered ONE (10:47)
[2023-11-27] MEDS ORDERED: KETOROLAC 60MG 2ML VIAL As Ordered ONE (10:47)
[2023-11-27 11:12] LABS: CORD GAS ABE A -3.7; CORD GAS HCO3 A 22.7 MMOL/L; CORD GAS O2 SAT A 50.7 %; CORD GAS PCO2 A 46.1 mmHg; CORD GAS PH A 7.311 UNITS; CORD GAS PO2 A 21.9 mmHg; CORD GAS SBC A 20.3 MMOL/L; CORD GAS TCO2 A 24.2 MMOL/L
[2023-11-27 11:14] LABS: CORD GAS ABE V -3.1; CORD GAS HCO3 V 22.8 MMOL/L; CORD GAS PCO2 V 43.9 mmHg; CORD GAS PH V 7.334 UNITS; CORD GAS PO2 V 24.4 mmHg; CORD GAS TCO2 V 24.2 MMOL/L
[2023-11-27] MEDS ORDERED: ACETAMINOPHEN 500 MG TAB PO PRN (11:20)
[2023-11-27] MEDS ORDERED: RHOGAM 300MCG (1500IU) INJ IM SCH (11:20)
[2023-11-27] MEDS ORDERED: SIMETHICONE 80MG CHEW TAB PO PRN (11:20)
[2023-11-27] MEDS: OXYTOCIN DRIP 30 UNITS in IV 1 EA IV SCH (11:51)
[2023-11-27] MEDS ORDERED: oxyCODONE 5MG TAB As Ordered ONE (12:14)
[2023-11-27] MEDS: oxyCODONE 5MG TAB PO PRN (12:15)
[2023-11-27] MEDS: diphenhydrAMINE 50MG CAP PO ONE (15:18)
[2023-11-27] MEDS: KETOROLAC 30 MG/ML 1ML VIAL IV SCH (16:54)
[2023-11-27] MEDS: DOCUSATE SODIUM 100MG CAPSULE PO SCH (19:32)
[2023-11-27] MEDS: LR 300 ML IV ONE (19:54)
[2023-11-28 02:00] VITALS: BP 112/61; O2SAT 97
[2023-11-28 06:00] VITALS: BP 118/65; O2SAT 97
[2023-11-28 06:26] LABS: HEMATOCRIT 25.3 % (36.0-47.0); HEMOGLOBIN 7.9 g/dl (12.0-15.5); MEAN CORPUSCULAR HEMOGLOBIN 27.6 pg (27.0-33.0); MEAN CORPUSCULAR HGB CONC 31.2 g/dl (32.0-36.5); MEAN CORPUSCULAR VOLUME 88.5 fl (80.0-96.0); PLATELET COUNT, AUTOMATED 269 10^3/uL (150-450); RED BLOOD COUNT 2.86 10^6/uL (4.00-5.40); WHITE BLOOD COUNT 11.2 10^3/uL (4.0-10.0)
[2023-11-28 10:00] VITALS: BP 109/66; O2SAT 98
[2023-11-28] MEDS: PRENATAL VITAMINS CHEWABLE TABLET PO SCH (11:07)
[2023-11-28] MEDS: IBUPROFEN 800 MG TAB PO SCH (13:33)
[2023-11-28 14:00] VITALS: BP 127/86; O2SAT 100
[2023-11-28] MEDS: FERROUS SULFATE 325MG TAB PO SCH (15:31)
[2023-11-28 18:00] VITALS: BP 129/84; O2SAT 100
[2023-11-28 22:00] VITALS: BP 120/72; O2SAT 98
[2023-11-29 02:00] VITALS: BP 121/81; O2SAT 99
[2023-11-29] MEDS: PERCOCET 5MG/325MG TAB PO PRN (03:38)
[2023-11-29 06:00] VITALS: BP 118/65; O2SAT 97
[2023-11-29 06:14] LABS: HEMOGLOBIN 8.3 g/dl (12.0-15.5); MEAN CORPUSCULAR HEMOGLOBIN 28.2 pg (27.0-33.0); MEAN CORPUSCULAR HGB CONC 31.9 g/dl (32.0-36.5); MEAN CORPUSCULAR VOLUME 88.4 fl (80.0-96.0); PLATELET COUNT, AUTOMATED 256 10^3/uL (150-450); RED BLOOD COUNT 2.94 10^6/uL (4.00-5.40); WHITE BLOOD COUNT 9.4 10^3/uL (4.0-10.0)
[2023-11-29] MEDS: MEASLES,MUMPS,RUBELLA VACCINE INJ (MMR-II) SC.IMMUN ONE (09:00)
[2023-11-29] MEDS ORDERED: PERCOCET PO (14:01)
[2023-11-29] MEDS ORDERED: IBUP80TA PO (14:01)
[2023-11-29] MEDS ORDERED: COLA100C5 PO (14:01)
== END 2023-11-29 16:30 | disposition home or self-care (01) | DRG 540 ==
LOC: M LDO 01:45 → M LDI 04:18 → M OBS 11-27 13:20
PROVIDERS: ADMIT Advanced Practice Midwife; ATTEND Advanced Practice Midwife
PROC: 10D00Z1 Extraction of Products of Conception, Low, Open Approach (ICD-10-PCS; principal; 2023-11-27 10:08)
DX: O60.14X0 Preterm labor third trimester with preterm delivery third trimester, not applicable or unspecified (principal); O45.8X9 Other premature separation of placenta, unspecified trimester; Z37.0 Single live birth; Z3A.33 33 weeks gestation of pregnancy; O76 Abnormality in fetal heart rate and rhythm complicating labor and delivery